=== PATIENT | male | born 1950 | race Caucasian/White ===

== ENCOUNTER → 2019-07-02 | Outpatient (CLI) | payer OTHER | END | disposition home or self-care (01) | LOC: OIH 11:19 | PROVIDERS: ATTEND Family Medicine | DX: R05 Cough (principal); M47.814 Spondylosis without myelopathy or radiculopathy, thoracic region; I70.0 Atherosclerosis of aorta | CPT/HCPCS: 71046 ==

== ENCOUNTER → 2019-12-14 | Outpatient (CLI) | payer OTHER | END | disposition home or self-care (01) | LOC: SHCH 11:06 | PROVIDERS: ATTEND Internal Medicine Cardiovascular Disease | DX: G45.9 Transient cerebral ischemic attack, unspecified (principal) | CPT/HCPCS: 93306 ==

== ENCOUNTER 2022-05-28 20:40 | Emergency (ER) | payer OTHER ==
[~2022-05-28] VITALS: Ht 177.8 cm; Wt 101.3 kg
[2022-05-28] MEDS ORDERED: ONDANSETRON 4MG INJ IVP ONE ×2 (21:00→21:30)
[2022-05-28 21:10] LABS: BASOPHILS % (AUTO) 0.1 % (0.0-5.0); EOSINOPHILS % (AUTO) 0.3 % (0.0-8.0); HEMATOCRIT 41.5 % (42-54); LYMPHOCYTES % (AUTO) 10.5 % (21.0-51.0); MEAN CORPUSCULAR HEMOGLOBIN 32.6 pg (27.0-33.0); MEAN CORPUSCULAR HGB CONC 35.4 g/dL (32.0-36.0); MONOCYTES % (AUTO) 9.2 % (3.0-13.0); NEUTROPHILS % (AUTO) 79.3 % (40.0-77.0); PLATELET COUNT (AUTO) 225 K/uL (130-400); RED BLOOD CELL COUNT(AUTO) 4.51 MIL/uL (4.50-6.20); RED CELL DISTRIBUTION WIDTH 12.2 % (11.0-15.5); WHITE BLOOD COUNT (AUTO) 10.8 K/uL (4.8-10.8)
[2022-05-28 21:12] LABS: APPEARANCE,URINE CLEAR (CLEAR); BILIRUBIN,URINE NEGATIVE (NEGATIVE); COLOR,URINE LIGHT-YELLOW (YELLOW); GLUCOSE, URINE (UA) 500 mg/dL (NEGATIVE); KETONES,URINE 10 mg/dL (NEGATIVE); LEUKOCYTE ESTERASE ,URINE NEGATIVE Leu/uL (NEGATIVE); NITRATE,URINE NEGATIVE (NEGATIVE); OCCULT BLOOD,URINE NEGATIVE (NEGATIVE); PH,URINE 6.5 (5.0-8.0); PROTEIN,URINE 10 mg/dL (NEGATIVE); UROBILINOGEN,URINE 0.2 mg/dL (0.2-1.0)
[2022-05-28 21:19] LABS: CREATININE 0.8 mg/dL (0.5-1.5)
[2022-05-28 21:26] LABS: ALBUMIN 3.7 g/dL (3.5-5.0); TOTAL PROTEIN, SERUM 7.1 g/dL (6.0-8.3)
[2022-05-28 21:29] LABS: BACTERIA,URINE FEW /HPF (None Seen); MUCUS,URINE RARE LPF (None Seen); YEAST,URINE BUDDING FEW /HPF (None Seen)
[2022-05-28] MEDS ORDERED: ZOSYN 3.375GM +NS 50ML IV ONE (21:30)
[2022-05-28] MEDS ORDERED: MORPHINE 2 MG SYG IVP ONE (21:30)
[2022-05-28] MEDS ORDERED: LACTATED RINGERS 1000ML 1,000 ML IV ONE (21:30)
[2022-05-28] MEDS ORDERED: IOHEXOL 350 MG/ML 100ML INFUS..BTL IV ONE (21:50)
[2022-05-29] MEDS ORDERED: 0.9%NACL 1000ML 1,000 ML IV ONE
[2022-05-29 01:15] VITALS: BP 148/76
[2022-05-29] MEDS ORDERED: FAMO-136 PO (01:15)
[2022-05-29] MEDS ORDERED: IBUP-1493 PO (01:15)
== END 2022-05-29 01:28 | disposition home or self-care (01) ==
LOC: EDH 20:40
DX: K85.90 Acute pancreatitis without necrosis or infection, unspecified (principal); I10 Essential (primary) hypertension; E11.9 Type 2 diabetes mellitus without complications; Z98.890 Other specified postprocedural states
CPT/HCPCS: 99284; 82150; 84484; 84478; 80053; 83690; 85025; 81001; 36415; 74177; 96365; 96366; 96375; 93005; J7120; J2405; J2543; Q9967; J7030

== ENCOUNTER → 2023-06-30 | Outpatient (CLI) | payer OTHER ==
[~2023-06-30] MED LIST: FAMO-136 PO; IBUP-1493 PO; IOHEXOL 350 MG/ML 100ML INFUS..BTL IV ONE
== END | disposition home or self-care (01) ==
LOC: RAH 08:09
PROVIDERS: ATTEND Family Medicine
DX: N28.1 Cyst of kidney, acquired (principal); R74.8 Abnormal levels of other serum enzymes; Z87.19 Personal history of other diseases of the digestive system
CPT/HCPCS: 74178; Q9967

== ENCOUNTER 2024-01-10 05:09 | Emergency (ER) | payer OTHER ==
[~2024-01-10] VITALS: Ht 177.8 cm; Wt 96.2 kg
[~2024-01-10 05:09] MED LIST changes: -IOHEXOL 350 MG/ML 100ML INFUS..BTL IV ONE
[2024-01-10] MEDS ORDERED: TENECTEplase 50 MG VIAL IVP ONE (05:10)
[2024-01-10 05:25] VITALS: TEMP 98.2
[2024-01-10 05:29] LABS: BASOPHILS # (AUTO) 0.04 K/uL (0.00-0.20); BASOPHILS % (AUTO) 0.5 % (0.0-5.0); EOSINOPHILS # (AUTO) 0.21 K/uL (0.00-0.70); EOSINOPHILS % (AUTO) 2.8 % (0.0-8.0); HEMATOCRIT 43.4 % (42-54); IMMATURE GRANULOCYTE ABSOLUTE 0.04 K/uL (0-1); LYMPHOCYTES # (AUTO) 2.3 K/uL (1.0-4.8); LYMPHOCYTES % (AUTO) 30.1 % (21.0-51.0); MEAN CORPUSCULAR HEMOGLOBIN 32.2 pg (27.0-33.0); MEAN CORPUSCULAR HGB CONC 33.6 g/dL (32.0-36.0); MEAN CORPUSCULAR VOLUME 95.8 fL (79-99); MONOCYTES # (AUTO) 0.9 K/uL (0.1-1.0); MONOCYTES % (AUTO) 11.7 % (3.0-13.0); NEUTROPHILS # (AUTO) 4.1 K/uL (1.8-7.7); NEUTROPHILS % (AUTO) 54.4 % (40.0-77.0); PLATELET COUNT (AUTO) 226 K/uL (130-400); RED BLOOD CELL COUNT(AUTO) 4.53 MIL/uL (4.50-6.20); RED CELL DISTRIBUTION WIDTH 12.6 % (11.0-15.5); WHITE BLOOD COUNT (AUTO) 7.6 K/uL (4.8-10.8)
[2024-01-10 05:38] LABS: INR 1.02 (0.85-1.15)
[2024-01-10 05:39] LABS: PARTIAL THROMBOPLASTIN TIME 26.9 SEC (26.3-35.5)
[2024-01-10 05:43] LABS: CARBON DIOXIDE 28 mmol/L (21-32); CREATINE KINASE, TOTAL 73 U/L (21-232); CREATININE 0.9 mg/dL (0.5-1.3); GLOMERULAR FILTR. RATE CALC 89 mL/min (>90); GLUCOSE,RANDOM 134 mg/dL (70-105); UREA NITROGEN, BLOOD 18 mg/dL (7-18)
[2024-01-10 05:46] LABS: ALCOHOL, BLOOD < 3 mg/dL (0-10)
[2024-01-10 05:47] LABS: B-TYPE NATRIURETIC PEPTIDE 10 pg/mL (0-100)
[2024-01-10 05:51] LABS: CHLORIDE 103 mmol/L (101-111); POTASSIUM 4.3 mmol/L (3.5-5.1); SODIUM SERUM 138 mmol/L (136-145)
[2024-01-10] MEDS: TENECTEplase 50 MG VIAL IV ONE (06:45)
[2024-01-10 06:54] VITALS: BP 164/69; PULSE 55; RESP 18; O2SAT 98
[2024-01-10 08:23] LABS: ADD UA MICROSCOPIC YES; APPEARANCE,URINE CLEAR (CLEAR); BILIRUBIN,URINE NEGATIVE (NEGATIVE); COLOR,URINE COLORLESS (YELLOW); GLUCOSE, URINE (UA) >=1000 mg/dL (NEGATIVE); KETONES,URINE NEGATIVE (NEGATIVE); LEUKOCYTE ESTERASE ,URINE NEGATIVE Leu/uL (NEGATIVE); NITRATE,URINE NEGATIVE (NEGATIVE); OCCULT BLOOD,URINE NEGATIVE (NEGATIVE); PH,URINE 5.5 (5.0-8.0); PROTEIN,URINE NEGATIVE (NEGATIVE); UROBILINOGEN,URINE 0.2 mg/dL (0.2-1.0)
[2024-01-10 08:31] LABS: RBC,URINE 0-1 /HPF (0-1)
== END 2024-01-10 09:38 | disposition short-term general hospital (02) ==
LOC: EDH 05:09
DX: I69.320 Aphasia following cerebral infarction (principal); I10 Essential (primary) hypertension; K21.9 Gastro-esophageal reflux disease without esophagitis; E66.01 Morbid (severe) obesity due to excess calories; Z79.899 Other long term (current) drug therapy; Z98.890 Other specified postprocedural states
CPT/HCPCS: 99285; 37195; 70450; 71045; 82550; 84484; 80048; 83880; 85025; 85610; 85730; 82948; 81001; 36415; 93005; J3101; 99291

== ENCOUNTER → 2024-01-23 | Outpatient (CLI) | payer OTHER ==
[2024-01-23 16:19] LABS: BASOPHILS # (AUTO) 0.03 K/uL (0.00-0.20); BASOPHILS % (AUTO) 0.3 % (0.0-5.0); EOSINOPHILS # (AUTO) 0.15 K/uL (0.00-0.70); EOSINOPHILS % (AUTO) 1.7 % (0.0-8.0); HEMATOCRIT 36.6 % (42-54); IMMATURE GRANULOCYTE ABSOLUTE 0.12 K/uL (0-1); LYMPHOCYTES # (AUTO) 1.8 K/uL (1.0-4.8); LYMPHOCYTES % (AUTO) 20.4 % (21.0-51.0); MEAN CORPUSCULAR HEMOGLOBIN 31.9 pg (27.0-33.0); MEAN CORPUSCULAR HGB CONC 32.8 g/dL (32.0-36.0); MEAN CORPUSCULAR VOLUME 97.3 fL (79-99); MONOCYTES # (AUTO) 1.1 K/uL (0.1-1.0); MONOCYTES % (AUTO) 12.5 % (3.0-13.0); NEUTROPHILS # (AUTO) 5.5 K/uL (1.8-7.7); NEUTROPHILS % (AUTO) 63.7 % (40.0-77.0); PLATELET COUNT (AUTO) 348 K/uL (130-400); RED BLOOD CELL COUNT(AUTO) 3.76 MIL/uL (4.50-6.20); RED CELL DISTRIBUTION WIDTH 13.5 % (11.0-15.5); WHITE BLOOD COUNT (AUTO) 8.7 K/uL (4.8-10.8)
[2024-01-23 16:37] LABS: POTASSIUM 4.4 mmol/L (3.5-5.1)
[2024-01-23 16:47] LABS: B-TYPE NATRIURETIC PEPTIDE 42 pg/mL (0-100)
== END | disposition home or self-care (01) ==
LOC: LAB 13:36
PROVIDERS: ATTEND Internal Medicine Cardiovascular Disease
DX: I10 Essential (primary) hypertension (principal); G45.9 Transient cerebral ischemic attack, unspecified
CPT/HCPCS: 36415; 80048; 83880; 85025

== ENCOUNTER 2024-06-01 21:30 | Emergency (ER) | payer OTHER ==
[~2024-06-01] VITALS: Ht 177.8 cm; Wt 102.1 kg
--- NOTE | 2024-06-01 22:20 | ERN ---
ED Note History of Present Illness Stated Complaint: LOWER BACK PAIN X 2 DAYS Chief Complaint: Back Injury Time Seen by MD: 21:33 Time Seen by Midlevel: 21:33 Dictation: The patient is a 73-year-old male with a history of TIA, diabetes, hypertension who presents to the emergency department with complaints of lower back pain onset yesterday night. Patient reports his has been sick at home and he has been having to carry her. Patient denies any falls or back trauma. Denies any urinary or fecal incontinence, denies any numbness to lower extremities. Allergies: Coded Allergies: No Known Drug Allergies (Unverified Allergy, Unknown, 05/28/22) Home Meds Active Scripts Lidocaine (Lidocaine) 4 % Adh..patch, 1 PATCH TP DAILY for 10 Days, #10 PATCH 0 Refills Prov:SHERRY BENAVIDES 06/01/24 Cyclobenzaprine HCl (Flexeril) 10 Mg Tab, 10 MG PO TID for muscle sstiffness, #14 TAB 0 Refills Prov:SHERRY BENAVIDES 06/01/24 Ibuprofen (Motrin/Advil) 800 Mg Tab, 800 MG PO TID, #30 TAB Prov:MYRA PATINO MD 05/29/22 Famotidine (Pepcid) 20 Mg Tablet, 20 MG PO DAILY, #30 TAB Prov:MYRA PATINO MD 05/29/22 Past Medical History Past Medical History: Diabetes-Type II, Hypertension, TIA Surgical History: Other Surgical History Other: UMBILICAL HERNIA REPAIR Social History: Negative, Other RN Note Reviewed/Agreed w/PFSH: Yes Review of System Dictation Constitutional: Negative for fever,chills, and weight loss Eyes: Negative for injury, pain,redness, and discharge ENT: Negative for injury,pain or swelling Cardiovascular: Negative for chest pain, palpitations, and edema Respiratory: Negative for shortness of breath, cough, and wheezing, Abdomen/GI: Negative for abdominal pain, nausea, vomiting, diarrhea, and constipation Back: Negative for injury positive for low back pain : Negative for injury, bleeding and discharge MS/Extremity: Negative for injury and deformity Skin: Negative for rash, and discoloration Neuro: Negative for headache, weakness, numbness, tingling, and seizure Psych: Negative for suicide ideation, homicidal ideation, and hallucinations Initial Vital Sign VS Vital Signs Date Time Temp Pulse Resp B/P (MAP) Pulse Ox O2 Delivery O2 Flow Rate FiO2 06/01/24 21:32 98.4 61 18 122/70 96 Room Air* 0 21 Physical Exam Dictation Vital Signs reviewed General Appearance: Alert, oriented x 3, no acute distress, well developed, nourished. Head and Face: non-traumatic. Eyes: PERRL, pink conjunctivas, eyelid no trauma, anterior chamber with arcus senilis. Ears: Pinnas intact and no signs of trauma or erythema ear canals clear and no discharge TM no erythema Nose: No discharge, no bleeding. Oropharynx: Mouth normal, tongue pink. pharynx clear,no erythema, tonsils no exudates, no abscesses noted, mucous membrane moist Neck: Supple, non-tender, no thyromegaly, no masses, no JVD, no bruits Breast:Deferred Chest:No tenderness, no crepitus, no paradoxical movement, no retractions Lungs:Clear, well-ventilated, symmetric, no rales, no wheezing, no rhonchi, no stridor, good breath sounds bilaterally Heart: Regular rate, regular rhythm, no murmur, no gallops Vascular: no peripheral edema, dorsalis pedis 3+ bilaterally Abdomen: Soft, positive bowel sounds, nondistended, no guarding, nontender, no rebound, no masses no hepatomegaly, no splenomegaly, no Baptiste's sign, no hernias. Rectal: Deferred Genital: Deferred Neurological: Normal speech, motor function intact, sensory function intact Musculoskeletal: Neck nontender, full range of motion, low back left tender, full range of motion, Extremities: nontender, full range of motion Skin: Color pink, dry, no turgor, no rash, no lacerations, no abrasions, no contusions. Lymphatic: Deferred Results (Laboratory/Radiology) Laboratory/Radiology REASON: lowbackpain ORDERING PHYSICIAN: SHERRY BENAVIDES NURSING CLERK PROCEDURE: L SPIN WO - CT LUMBAR SPINE W/O CONTRAST CT LUMBAR SPINE W/O CONTRAST HISTORY: Low back pain COMPARISON: None TECHNIQUE: Multiple sequential axial images of the lumbar spine were obtained including post processing sagittal and coronal reconstruction images. Patient was not given contrast through intravenous route. FINDINGS: There are degenerative changes with lumbar spine spondylosis. Vascular calcifications are seen. There is no loss of vertebral height. Evaluation for disc and cord pathology is limited with CT study. No evidence of fracture or dislocation is seen. Prostate calcifications are seen. There is left renal cyst measuring 7.3 cm. Small right complex Bosniak type II renal cyst is seen measuring 2.3 cm. IMPRESSION: 1. No fracture is seen. DJD. Labs Reviewed?: Yes ED Course ED Course Orders Procedure Category Date Status Time Orphenadrine Citrate PHA 06/01/24 Complete (Norflex) 22:00 Triamcinolone Acet PHA 06/01/24 Complete 40mg/Ml 1ml (Kenalog 22:00 Ct Lumbar Spine W/O CT 06/01/24 Resulted Contrast 21:56 Current Medications Medications (Trade) Dose Ordered Sig/Ayana Route PRN Reason Start Time Stop Time Status Last Admin Dose Admin Orphenadrine Citrate (Norflex) 60 mg ONCE ONCE IM 06/01/24 22:00 06/01/24 22:01 DC Triamcinolone Acetonide (Kenalog 40) 40 mg ONCE ONCE IM 06/01/24 22:00 06/01/24 22:01 DC Vital Signs Date Time Temp Pulse Resp B/P (MAP) Pulse Ox O2 Delivery O2 Flow Rate FiO2 06/01/24 21:33 98.4 61 18 122/70 96 Room Air 0 06/01/24 21:32 98.4 61 18 122/70 96 Room Air* 0 21 Medical Decision Making MDM The patient is a 73-year-old male with a history of TIA, diabetes, hypertension who presents to the emergency department with complaints of lower back pain onset yesterday night. Patient reports his has been sick at home and he has been having to carry her. Patient denies any falls or back trauma. Denies any urinary or fecal incontinence, denies any numbness to lower extremities. CT showed no acute fractures or dislocations. Patient's symptoms mildly related to muscle strain. Patient with no urinary or fecal incontinence, ambulatory, no numbness. Patient will be discharged to follow up PCP. Differential diagnosis: Muscle strain, lumbar fracture, lumbar dislocation Need for hospitalization: Patient does not meet criteria for hospitalization. There are no social concerns with this patient. DX & DISP Disposition: Discharge Departure Impression: Primary Impression: Low back strain Additional Impression: Low back pain Condition: Stable Scripts Lidocaine (Lidocaine) 4 % Adh..patch 1 PATCH TP DAILY for 10 Days, #10 PATCH 0 Refills Prov: SHERRY BENAVIDES MELBA 06/01/24 Cyclobenzaprine HCl (Flexeril) 10 Mg Tab 10 MG PO TID for muscle sstiffness, #14 TAB 0 Refills Prov: SHERRY BENAVIDES MELBA 06/01/24 Additional Instructions: Your CT scan did not show any fractures or dislocations. Your symptoms are related to a muscle strain. Avoid any heavy lifting that exacerbate your symptoms. Take medications as prescribed. Please follow up with your primary doctor. FOLLOW-UP WITH PRIMARY CARE PROVIDER IN 1 TO 2 DAYS. TAKE MEDICATIONS DIRECTED HERE IN THE EMERGENCY ROOM. OKAY TO CONTINUE HOME MEDICATIONS UNLESS OTHERWISE DISCUSSED DURING YOUR VISIT IN THE EMERGENCY ROOM TODAY. RETURN TO YOUR NEAREST EMERGENCY ROOM IF SYMPTOMS WORSEN OR IF THERE IS NO IMPROVEMENT. CALL 911 IF YOU NEED IMMEDIATE ASSISTANCE. TAKE TYLENOL OR MOTRIN [id number] NEEDED AND IF NO CONTRAINDICATIONS ARE PRESENT. INCREASE ORAL HYDRATION. A WOUND CULTURE OR URINE CULTURE WAS ORDERED HERE IN THE EMERGENCY ROOM DEPARTMENT PLEASE FOLLOW-UP WITH PRIMARY CARE PROVIDER AND ADVISE THEM TO GET REPEAT PORTS FROM OUR FACILITY. IF YOU HAD ANY SWETHA WRAP/SPLINTS THAT WERE APPLIED HERE, PLEASE DO NOT REMOVE THEM UNTIL YOU SEE YOUR PRIMARY CARE OR SPECIALTY. Referrals: JUAN ALBERTO URENA MD (PCP) Time of Disposition: 23:45 I have reviewed the case, and I agree with, Diagnosis and Plan SHERRY BENAVIDES MELBA Jun 01, 2024 22:20
--- NOTE | 2024-06-01 22:48 | NUR ---
PT CALLED OUT IN LOBBY, NO RESPONSE, PT NOT FOUND
--- NOTE | 2024-06-01 23:40 | HMCIMG ---
CT LUMBAR SPINE W/O CONTRAST HISTORY: Low back pain COMPARISON: None TECHNIQUE: Multiple sequential axial images of the lumbar spine were obtained including post processing sagittal and coronal reconstruction images. Patient was not given contrast through intravenous route. FINDINGS: There are degenerative changes with lumbar spine spondylosis. Vascular calcifications are seen. There is no loss of vertebral height. Evaluation for disc and cord pathology is limited with CT study. No evidence of fracture or dislocation is seen. Prostate calcifications are seen. There is left renal cyst measuring 7.3 cm. Small right complex Bosniak type II renal cyst is seen measuring 2.3 cm. IMPRESSION: 1. No fracture is seen. DJD. CT was performed with one or more following dose reduction techniques: automated exposure control, adjustment of the mA and kv according to patient's size, or use of a iterative reconstruction technique.
[2024-06-01] MEDS ORDERED: LIDO1ADH82 TP (23:46)
[2024-06-01] MEDS ORDERED: CYCL10TA16 PO (23:46)
[2024-06-01] MEDS: ORPHENADRINE 60MG/2ML IM ONE (23:58)
[2024-06-01] MEDS: TRIAMCINOLONE ACETONIDE 40 MG/ML 1ML VIAL IM ONE (23:58)
[2024-06-02 00:03] VITALS: BP 146/67; PULSE 78; RESP 20; TEMP 98.8; O2SAT 98
--- NOTE | 2024-06-02 00:50 | NUR ---
[facility] CONTACTED FOR NON EMERGENT TRANSFER HOME
== END 2024-06-02 00:12 | disposition home or self-care (01) ==
LOC: EDH 21:30
DX: S39.012A Strain of muscle, fascia and tendon of lower back, initial encounter (principal); E11.9 Type 2 diabetes mellitus without complications; I10 Essential (primary) hypertension; Z79.1 Long term (current) use of non-steroidal anti-inflammatories (NSAID); Z86.73 Personal history of transient ischemic attack (TIA), and cerebral infarction without residual deficits; Z79.899 Other long term (current) drug therapy; X58.XXXA Exposure to other specified factors, initial encounter; Y93.89 Activity, other specified; Y92.89 Other specified places as the place of occurrence of the external cause; Y99.8 Other external cause status
CPT/HCPCS: 99284; 72131; 96372 ×2; J3301; J2360

== ENCOUNTER → 2024-06-18 | Outpatient (CLI) | payer OTHER ==
[~2024-06-18] MED LIST changes: +CYCL10TA16 PO; +LIDO1ADH82 TP
[2024-06-18 12:47] LABS: BASOPHILS # (AUTO) 0.02 K/uL (0.00-0.20); BASOPHILS % (AUTO) 0.3 % (0.0-5.0); EOSINOPHILS # (AUTO) 0.03 K/uL (0.00-0.70); EOSINOPHILS % (AUTO) 0.4 % (0.0-8.0); HEMATOCRIT 40.5 % (42-54); IMMATURE GRANULOCYTE ABSOLUTE 0.07 K/uL (0-1); LYMPHOCYTES # (AUTO) 1.3 K/uL (1.0-4.8); LYMPHOCYTES % (AUTO) 17.2 % (21.0-51.0); MEAN CORPUSCULAR HEMOGLOBIN 32.9 pg (27.0-33.0); MEAN CORPUSCULAR HGB CONC 34.3 g/dL (32.0-36.0); MONOCYTES # (AUTO) 0.9 K/uL (0.1-1.0); MONOCYTES % (AUTO) 12.6 % (3.0-13.0); NEUTROPHILS % (AUTO) 68.5 % (40.0-77.0); PLATELET COUNT (AUTO) 232 K/uL (130-400); RED BLOOD CELL COUNT(AUTO) 4.22 MIL/uL (4.50-6.20); RED CELL DISTRIBUTION WIDTH 13.2 % (11.0-15.5); WHITE BLOOD COUNT (AUTO) 7.3 K/uL (4.8-10.8)
[2024-06-18 12:58] LABS: PROTHROMBIN TIME 11.2 SEC (9.6-11.6)
[2024-06-18 12:59] LABS: PARTIAL THROMBOPLASTIN TIME 29.3 SEC (26.3-35.5)
== END | disposition home or self-care (01) ==
LOC: LAB 10:27
PROVIDERS: ATTEND Internal Medicine Cardiovascular Disease
DX: T14.8XXA Other injury of unspecified body region, initial encounter (principal); X58.XXXA Exposure to other specified factors, initial encounter; Y93.89 Activity, other specified; Y92.89 Other specified places as the place of occurrence of the external cause; Y99.8 Other external cause status
CPT/HCPCS: 36415; 85025; 85610; 85730

== ENCOUNTER 2025-02-12 14:43 | Inpatient (IN) | payer OTHER ==
[~2025-02-12] VITALS: Ht 177.8 cm; Wt 91.2 kg
--- NOTE | 2025-02-12 14:52 | ERN ---
ED Note History of Present Illness Stated Complaint: WEAKNESS Chief Complaint: Weakness Time Seen by MD: 14:45 Dictation: PATIENT IS A 74-YEAR-OLD MALE COMING IN WITH HIS DAUGHTER WITH COMPLAINTS OF GENERALIZED BODY WEAKNESS,7 LB WEIGHT LOSS IN THE LAST TWO WEEKS. HE SAID HE IS JUST DOES NOT FEEL GOOD. NO CHEST PAIN NO BACK PAIN. HE IS ON DOXYCYCLINE FOR A PARONYCHIA TO THE DISTAL RIGHT INDEX FINGER. IT STARTED SEVERAL DAYS AGO ON 02/08. HE HAS A DIABETIC HE STATES HIS BLOOD SUGAR HAS BEEN CONTROLLED. HE OF FERS NO SPECIFIC COMPLAINTS OTHER THAN JUST FEELING WEAK AND HAVE SOME WEIGHT LOSS. Allergies: Coded Allergies: No Known Drug Allergies (Unverified Allergy, Unknown, 05/28/22) Home Meds Active Scripts Lidocaine (Lidocaine) 4 % Adh..patch, 1 PATCH TP DAILY for 10 Days, #10 PATCH 0 Refills Prov:SHERRY BENAVIDES [employer] 06/01/24 Cyclobenzaprine HCl (Flexeril) 10 Mg Tab, 10 MG PO TID for muscle sstiffness, #14 TAB 0 Refills Prov:SHERRY BENAVIDES 06/01/24 Ibuprofen (Motrin/Advil) 800 Mg Tab, 800 MG PO TID, #30 TAB Prov:MYRA PATINO MD 05/29/22 Famotidine (Pepcid) 20 Mg Tablet, 20 MG PO DAILY, #30 TAB Prov:MYRA PATINO MD 05/29/22 Past Medical History Past Medical History: Diabetes-Type II, Hypertension, TIA Surgical History: Other Surgical History Other: UMBILICAL HERNIA REPAIR Family History: Negative Social History: Negative, Other RN Note Reviewed/Agreed w/PFSH: Yes Review of System Dictation CONSTITUTIONAL: NEGATIVE EXCEPT FOR HPI GB W/WEIGHT LOSS HEAD/FACE: NEGATIVE EXCEPT FOR HPI EENT: NEGATIVE EXCEPT FOR HPI RESPIRATORY: NEGATIVE EXCEPT FOR HPI GASTROINTESTINAL/ABDOMINAL: NEGATIVE EXCEPT FOR HPI GENITOURINARY: NEGATIVE EXCEPT FOR HPI MUSCULOSKELETAL: NEGATIVE EXCEPT FOR HPI MILD ERYTHEMA PAIN TO DISTAL RIGHT INDEX FINGER INTEGUMENTARY: NEGATIVE EXCEPT FOR HPI NEUROLOGICAL/PSYCH: NEGATIVE EXCEPT FOR HPI HEMATOLOGIC/LYMPHATIC: NEGATIVE EXCEPT FOR HPI ALL SYSTEMS NEGATIVE, EXCEPT NOTED ABOVE. 13 POINT REVIEW OF SYSTEMS ASSESSED AND ALL NEGATIVE EXCEPT FOR ABOVE. Initial Vital Sign VS Vital Signs Date Time Temp Pulse Resp B/P (MAP) Pulse Ox O2 Delivery O2 Flow Rate FiO2 02/12/25 14:45 98.1 61 20 116/53 98 Room Air 0 02/12/25 14:58 21 Physical Exam Dictation VITAL SIGNS REVIEWED GENERAL APPEARANCE: ALERT, ORIENTED X 3, NO COMPLAINTS OF SPECIFIC PAIN. APPEARS DEBILITATED AND WEAK HEAD AND FACE: NON-TRAUMATIC. EYES: PERRL, PINK CONJUNCTIVAS, EYELID NO TRAUMA, ANTERIOR CHAMBER WITH ARCUS SENILIS. EARS: PINNAS INTACT AND NO SIGNS OF TRAUMA OR ERYTHEMA EAR CANALS CLEAR AND NO DISCHARGE TM NO ERYTHEMA NOSE: NO DISCHARGE, NO BLEEDING. OROPHARYNX: MOUTH NORMAL, TONGUE PINK, PHARYNX CLEAR,NO ERYTHEMA, TONSILS NO EXUDATES, NO ABSCESSES NOTED, MUCOUS MEMBRANE MOIST NECK: SUPPLE, NON-TENDER, NO THYROMEGALY, NO MASSES, NO JVD, NO BRUITS BREAST:DEFERRED CHEST:NO TENDERNESS, NO CREPITUS, NO PARADOXICAL MOVEMENT, NO RETRACTIONS LUNGS:CLEAR, WELL-VENTILATED, SYMMETRIC, NO RALES, NO WHEEZING, NO RHONCHI, NO STRIDOR, GOOD BREATH SOUNDS BILATERALLY HEART: REGULAR RATE, REGULAR RHYTHM, NO MURMUR, NO GALLOPS VASCULAR: NO PERIPHERAL EDEMA, ABDOMEN: SOFT, POSITIVE BOWEL SOUNDS, NONDISTENDED, NO GUARDING, NONTENDER, NO REBOUND, NO MASSES NO HEPATOMEGALY, NO SPLENOMEGALY, NO MOLINA'S SIGN, NO HERNIAS. RECTAL: DEFERRED GENITAL: DEFERRED NEUROLOGICAL: NORMAL SPEECH, MOTOR FUNCTION INTACT, SENSORY FUNCTION INTACT MUSCULOSKELETAL: NECK NONTENDER, FULL RANGE OF MOTION, BACK NONTENDER, FULL RANGE OF MOTION, EXTREMITIES: MILD TENDERNESS ERYTHEMA TO DISTAL RIGHT INDEX FINGER MEDIALLY SKIN: COLOR PINK, DRY, NO TURGOR, NO RASH, NO LACERATIONS, NO ABRASIONS, NO CONTUSIONS. LYMPHATIC: DEFERRED Results (Laboratory/Radiology) Laboratory/Radiology Laboratory Tests Test 02/12/25 15:40 02/12/25 16:15 02/12/25 18:56 02/12/25 20:27 White Blood Count 7.4 K/uL (4.8-10.8) Red Blood Count 4.70 MIL/uL (4.50-6.20) Hemoglobin 15.1 g/dL (14.0-18.0) Hematocrit 45.6 % (42-54) Mean Corpuscular Volume 97.0 fL (79-99) Mean Corpuscular Hemoglobin 32.1 pg (27.0-33.0) Mean Corpuscular Hemoglobin Concent 33.1 g/dL (32.0-36.0) Red Cell Distribution Width 13.2 % (11.0-15.5) Platelet Count 227 K/uL (130-400) Mean Platelet Volume 8.9 fL (7.5-10.5) Immature Granulocyte % (Auto) 0.5 % (0-1) Neutrophils (%) (Auto) 75.3 % (40.0-77.0) Lymphocytes (%) (Auto) 13.1 % (21.0-51.0) L Monocytes (%) (Auto) 10.3 % (3.0-13.0) Eosinophils (%) (Auto) 0.7 % (0.0-8.0) Basophils (%) (Auto) 0.1 % (0.0-5.0) Neutrophils # (Auto) 5.6 K/uL (1.8-7.7) Lymphocytes # (Auto) 1.0 K/uL (1.0-4.8) Monocytes # (Auto) 0.8 K/uL (0.1-1.0) Eosinophils # (Auto) 0.05 K/uL (0.00-0.70) Basophils # (Auto) 0.01 K/uL (0.00-0.20) Absolute Immature Granulocyte (auto 0.04 K/uL (0-1) Nucleated Red Blood Cells 0.0 % (0.0-0.19) Sodium Level 140 mmol/L (136-145) Potassium Level 4.3 mmol/L (3.5-5.1) Chloride Level 100 mmol/L (101-111) L Carbon Dioxide Level 27 mmol/L (21-32) Blood Urea Nitrogen 17 mg/dL (7-18) Creatinine 0.8 mg/dL (0.5-1.3) Glomerular Filtration Rate Calc 92 mL/min (>90) Random Glucose 104 mg/dL (70-105) Lactic Acid Level 3.6 mmol/L (0.8-2.5) H 1.8 mmol/L (0.8-2.5) 1.3 mmol/L (0.8-2.5) Total Calcium 8.8 mg/dL (8.5-10.1) Magnesium Level 1.80 mg/dL (1.80-2.40) Troponin I High Sensitivity 8 ng/L (4-75) B-Type Natriuretic Peptide 33 pg/mL (0-100) Urine Color LIGHT-YELLOW (YELLOW) Urine Appearance CLEAR (CLEAR) Urine pH 5.5 (5.0-8.0) Urine Specific [place] 1.026 (1.001-1.031) Urine Protein NEGATIVE mg/dL (NEGATIVE) Urine Glucose (UA) >=1000 mg/dL (NEGATIVE) H Urine Ketones NEGATIVE mg/dL (NEGATIVE) Urine Occult Blood NEGATIVE (NEGATIVE) Urine Nitrate NEGATIVE (NEGATIVE) Urine Bilirubin NEGATIVE mg/dL (NEGATIVE) Urine Urobilinogen 0.2 mg/dL (0.2-1.0) Urine Leukocyte Esterase NEGATIVE [place]/uL Urine RBC 0-1 /HPF (0-1) Urine WBC 0-1 /HPF (0-1) Urine Bacteria None /HPF (None Seen) Labs Reviewed?: Yes EKG Comment: 1453/EKG sinus bradycardia/heart rate 59/axis normal/no ectopy CT Scan Comment: REASON: abd distention ORDERING PHYSICIAN: THOMAS FUENTES MD PROCEDURE: ABD PEL WO - CT ABDOMEN/PELVIS W/O CONTRAST EXAM: CT Abdomen and Pelvis Without IV contrast CLINICAL HISTORY: abd distention TECHNIQUE: Axial computed tomography images of the abdomen and pelvis without intravenous contrast. CONTRAST: No IV contrast. COMPARISON: None provided. CT abdomen and pelvis with and without IV contrast 06/30/2023 FINDINGS: LUNG BASES: The lung bases appear clear. No pleural effusions are seen. LIVER: Unremarkable. GALLBLADDER AND BILE DUCTS: The gallbladder appears within normal limits. No radioopaque gallstones are seen. No biliary ductal dilatation is evident. PANCREAS: Unremarkable. SPLEEN: Unremarkable. ADRENAL GLANDS: Unremarkable. KIDNEYS, URETERS, AND BLADDER: The kidneys appear within normal limits. There is no hydronephrosis or hydroureter. No urinary calculi are seen. Stable large simple left renal cyst. Stable partially calcified small right renal cyst STOMACH AND BOWEL: Unremarkable appearance of the stomach and bowel. No evidence of bowel obstruction. No evidence suggesting enteritis or colitis. Postsurgical small bowel changes left midabdomen. Colonic diverticulosis without CT evidence of acute diverticulitis APPENDIX: No evidence of acute appendicitis on CT examination. PERITONEUM: No free fluid. No free air. LYMPH NODES: No lymphadenopathy is evident. REPRODUCTIVE: Unremarkable as visualized. VASCULATURE: No evidence of abdominal aortic aneurysm. 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 BONES: No aggressive appearing osseous lesion. No acute osseous pathology evident. IMPRESSION: 1. No acute intraabdominal or pelvic pathology. 2. Stable large simple left renal cyst and partially calcified small right renal cyst. 3. Postsurgical small bowel changes in left midabdomen. 4. Colonic diverticulosis without CT evidence of acute diverticulitis. 5. 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 /[place] DICTATED BY: MERLIN FERNANDEZ MD DATE: 02/12/251912 ELECTRONICALLY SIGNED BY: MERLIN FERNANDEZ MD DATE: 02/12/251912 ED Course ED Course Orders Procedure Category Date Status Time Blood Cult MEAGHAN 02/12/25 In Process 14:49 Lactic Acid LAB 02/12/25 Complete 14:49 B-Type Natriuretic LAB 02/12/25 Complete Peptide 14:49 Cbc With Differential LAB 02/12/25 Complete 14:49 Chest 1vw RAD 02/12/25 Resulted 14:49 12 Lead Ekg Tracing- EKG 02/12/25 Complete Technical 14:49 Magnesium LAB 02/12/25 Complete 14:49 Troponin I High LAB 02/12/25 Complete Sensitivity 14:49 Urinalysis Profile LAB 02/12/25 Complete 14:49 Basic Metabolic Panel LAB 02/12/25 Complete 14:49 Ct Abdomen/Pelvis W/O CT 02/12/25 Resulted Contrast 16:17 Pantoprazole 40mg Inj PHA 02/12/25 Complete (Protonix 40mg Inj 16:30 Lidocaine Hcl 2% PHA 02/12/25 Complete Viscous (Lidocaine Hcl 16:30 Mag/Alum/Simeth 30ml PHA 02/12/25 Complete (Maalox Plus 30ml) 16:30 0.9%Nacl 1000ml (Ns PHA 02/12/25 Complete 1000ml) 17:00 Ceftriaxone 2gm Vial PHA 02/12/25 Complete (Rocephin 2gm Inj) 17:00 Lactic Acid LAB 02/12/25 Complete 18:50 Lactic Acid (Removed) LAB 02/12/25 Complete 19:02 Admit Orders ADM 02/12/25 Transmitted 20:36 Current Medications Medications (Trade) Dose Ordered Sig/Ayana Route PRN Reason Start Time Stop Time Status Last Admin Dose Admin Al Hydroxide/Mg Hydroxide (MAALox PLUS 30ML) 30 ml ONCE ONCE PO 02/12/25 16:30 02/12/25 16:31 DC 02/12/25 17:07 Ceftriaxone Sodium (Rocephin 2gm Inj) 2 gm ONCE ONCE IVPB 02/12/25 17:00 02/12/25 17:01 DC 02/12/25 17:08 Lidocaine HCl (Lidocaine HCl 2% Viscous) 10 ml ONCE ONCE PO 02/12/25 16:30 02/12/25 16:31 DC 02/12/25 17:07 Pantoprazole Sodium (PROTonix 40MG INJ) 40 mg DAILY ONCE IVP 02/12/25 16:30 02/12/25 16:31 DC 02/12/25 17:08 Sodium Chloride 2,625 ml @ 875 mls/hr ONCE ONCE IV 02/12/25 17:00 02/12/25 19:59 DC 02/12/25 17:08 Vital Signs Date Time Temp Pulse Resp B/P (MAP) Pulse Ox O2 Delivery O2 Flow Rate FiO2 02/12/25 19:13 98.2 55 18 152/70 99 Room Air* 0 21 02/12/25 18:28 98.2 54 16 153/71 98 Room Air* 0 21 02/12/25 14:58 98.2 60 16 135/61 98 Room Air* 0 21 02/12/25 14:45 98.1 61 20 116/53 98 Room Air 0 7:00 p.m. patient was signed out to me by a.m. physician I independently reviewed all the information including lab results. Also reviewed CT scan of the abdomen results and recommended admission to the hospital. 8:40 p.m. patient accepted by Alex Kohler hospitalist mid-level provider for admission and further management. Medical Decision Making MDM 7:00 p.m.-I assumed care from a.mJabier group I independently evaluated the patient. Patient's daughter Jerica at bedside during my evaluation. He is a 74 year old male with past medical history of type 2 Diabetes mellitus, hypertension, hyperlipidemia, TIA came too the hospital for weakness, nausea, vomiting. His nausea and vomiting started in January. Its on an off. He had several episodes all day. He has hiccups before throwing up. It occurs 4 to 6 hours after eating. It contains bile and food that he ate previously. He also has loss of appetite. He has weight loss.He also had a episode of fall on Feb 04. He also has shortness of breath which is seen after walking. He has no palpitations, dizziness, chest pain, or any other symptoms. In the ER his vitals signs are Temp 98.3, pulse is 60, RR is 16, BP is 135/61, %saturation is 83. His labs show that Hb is 15.1, WBC is 7.4, sodium is 140, potassium is 4.3, chloride is 100, glucose is 104, lactic acid is 3.6 and magnesium is 1.8. Urinalysis showed glucose >1000 and no ketones. We ordered a Chest X-ray and CT abdomen. We also added IV Protonix, GI cocktail. Chest X-ray showed no abnormality. Based on the blood work and urinalysis we diagnosed his condition as lactic acidosis. We started him on normal saline and we will admit him for further management. Differential diagnosis: Dehydration, lactic acidosis, Sepsis, Diabetic ketoacidosis, gastroparesis, situational depression as he just lost his in June, long-term effects of heavy alcohol abuse-vitamin B12 or folate deficiency. Mesenteric ischemia is another possibility I strongly suspect combination of likely diabetic gastroparesis, component of situational depression after losing spouse and long-term effects of heavy alcohol abuse although he stated that he has quit drinking 4 years ago. I updated the patient and his daughter on my thought process and concern for lactic acidosis and I reviewed the CT scan results with both of them. There is a suggestion of anatherosclerotic changes in the SMA. Patient does not have any abdominal pain postprandial to suggest mesenteric ischemia. I recommended admission to the hospital and further evaluation for the nausea vomitings, obtain B12 folate and thiamine supplementation. Patient may also need psychiatry evaluation for situational depression They both are agreeable Rationale: Tests considered and ordered secondary to shared decision making include: CBC, BMP, Lactic acid, CT abdomen and pelvis, magnesium, chest X-ray, urinalysis, CT abdomen and pelvis. Previous outside records reviewed: Old ER visits. Risk of complication and/or morbidity or mortality of patient management: None Medications-Per medication reconciliation Need for hospitalization: Patient does meet criteria for hospitalization. Need for emergency major/minor surgery: No There are no social concerns with this patient. Prescription drug management Prescriptions will include symptomatic care Patient's prior external medical records from other ER visits were reviewed by me as indicated. Prior testing and results from previous visits were reviewed. Prior tests were taken into account with medical decision making and resource utilization, independent historian/historians were used to obtain complete medical history. I independently interpreted the test that were performed, results were reviewed by me and considered findings on radiology if ordered. Medical management and examination interpretation discussions were had by me with other qualified healthcare professionals as indicated for the patient's care. Problem List Problem List: (1) Gastroparesis diabeticorum (2) Weight loss, unintentional (3) History of alcohol abuse (4) Reactive depression (situational) (5) Intractable nausea and vomiting (6) Lactic acidosis (7) Weakness DX & DISP Disposition: Inpatient Decision to Admit Time: 20:41 Departure Impression: Primary Impression: Lactic acidosis Additional Impressions: Weakness, Intractable nausea and vomiting, Gastroparesis diabeticorum, Weight loss, unintentional, Reactive depression (situational), History of alcohol abuse Condition: Stable Additional Instructions: Patient was informed of all the diagnostic labs and procedures conducted in the emergency room today and demonstrated understanding of the results. I personally reviewed and interpreted all the diagnostic exams performed in the ER today. The patient will be admitted to the hospital for further treatment and evaluation. Disposition-admit to facility Condition-stable/guarded Course-uncertain at this time Pain status-decreased Assessment-exam unchanged Admission Certification- I certify that the patients status is appropriate and is based on my best clinical judgment and the patient's condition as documented in the medical records Referrals: JUAN ALBERTO URENA MD (PCP) WAQAR ACEVEDO Feb 12, 2025 14:52 JACKIE LANIER MD Feb 12, 2025 16:23 THOMAS FUENTES MD Feb 12, 2025 18:56 YONAS RODRIGUEZ MD Feb 12, 2025 19:30
[2025-02-12 15:48] LABS: IMMATURE GRANULOCYTE ABSOLUTE 0.04 K/uL (0-1); NUCLEATED RED BLOOD CELLS 0.0 % (0.0-0.19); PLATELET COUNT (AUTO) 227 K/uL (130-400); RED BLOOD CELL COUNT(AUTO) 4.70 MIL/uL (4.50-6.20); RED CELL DISTRIBUTION WIDTH 13.2 % (11.0-15.5); WHITE BLOOD COUNT (AUTO) 7.4 K/uL (4.8-10.8)
[2025-02-12 16:06] LABS: CREATININE 0.8 mg/dL (0.5-1.3); GLOMERULAR FILTR. RATE CALC 92.0 mL/min (>90); GLUCOSE,RANDOM 104.0 mg/dL (70-105); SODIUM SERUM 140.0 mmol/L (136-145); UREA NITROGEN, BLOOD 17.0 mg/dL (7-18)
--- NOTE | 2025-02-12 16:10 | HMCIMG ---
EXAM: CR Chest, 1 View. CLINICAL HISTORY: CHEST PAIN/SOB COMPARISON: X-ray chest 01/09/2024 FINDINGS: LUNGS: There is no mass, infiltrate, or acute pulmonary abnormality. PLEURAL SPACES: No evidence of pleural effusion or pneumothorax. MEDIASTINUM: Cardiac size and mediastinal contours within normal limits. BONES: No acute osseous abnormality. IMPRESSION: No acute cardiopulmonary pathology is evident. No significant change /[place]
[2025-02-12 16:27] LABS: APPEARANCE,URINE CLEAR (CLEAR); GLUCOSE, URINE (UA) >=1000 mg/dL (NEGATIVE); LEUKOCYTE ESTERASE ,URINE NEGATIVE Leu/uL (NEGATIVE); NITRATE,URINE NEGATIVE (NEGATIVE); OCCULT BLOOD,URINE NEGATIVE (NEGATIVE)
[2025-02-12 16:28] LABS: ADD UA MICROSCOPIC YES
[2025-02-12] MEDS: MAG/ALUM/SIMETH 30 ML UDCUP PO ONE (17:07)
[2025-02-12] MEDS: LIDOCAINE HCL 2% VISCOUS 15 ML UDCUP PO ONE (17:07)
[2025-02-12] MEDS: [UNRECOGNIZED DRUG - OTHER] IV ONE (17:08)
--- NOTE | 2025-02-12 17:16 | EKG ---
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
--- NOTE | 2025-02-12 18:14 | HMCIMG ---
EXAM: CT Abdomen and Pelvis Without IV contrast CLINICAL HISTORY: abd distention TECHNIQUE: Axial computed tomography images of the abdomen and pelvis without intravenous contrast. CONTRAST: No IV contrast. COMPARISON: None provided. CT abdomen and pelvis with and without IV contrast 06/30/2023 FINDINGS: LUNG BASES: The lung bases appear clear. No pleural effusions are seen. LIVER: Unremarkable. GALLBLADDER AND BILE DUCTS: The gallbladder appears within normal limits. No radioopaque gallstones are seen. No biliary ductal dilatation is evident. PANCREAS: Unremarkable. SPLEEN: Unremarkable. ADRENAL GLANDS: Unremarkable. KIDNEYS, URETERS, AND BLADDER: The kidneys appear within normal limits. There is no hydronephrosis or hydroureter. No urinary calculi are seen. Stable large simple left renal cyst. Stable partially calcified small right renal cyst STOMACH AND BOWEL: Unremarkable appearance of the stomach and bowel. No evidence of bowel obstruction. No evidence suggesting enteritis or colitis. Postsurgical small bowel changes left midabdomen. Colonic diverticulosis without CT evidence of acute diverticulitis APPENDIX: No evidence of acute appendicitis on CT examination. PERITONEUM: No free fluid. No free air. LYMPH NODES: No lymphadenopathy is evident. REPRODUCTIVE: Unremarkable as visualized. VASCULATURE: No evidence of abdominal aortic aneurysm. 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 BONES: No aggressive appearing osseous lesion. No acute osseous pathology evident. IMPRESSION: 1. No acute intraabdominal or pelvic pathology. 2. Stable large simple left renal cyst and partially calcified small right renal cyst. 3. Postsurgical small bowel changes in left midabdomen. 4. Colonic diverticulosis without CT evidence of acute diverticulitis. 5. 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 /[place]
--- NOTE | 2025-02-12 19:11 | NUR ---
transfered care to [facility]
--- NOTE | 2025-02-12 20:38 | HP ---
History of Present Illness Reason for Visit: n/v History of Present Illness Mr. Wall is a 74-year-old male that was seen and examined today on 02/12/2025. Patient is a good historian of personal health Patient states that he came to the emergency department with a chief complaint of nausea and vomiting. Onset is one month ago. Location is abdominal. Duration is on and off and multiple times a day. Character is described as, "after eating I will suddenly get the hiccups then it feels like I get this wave of nausea. "There was no alleviating factors. Symptoms are aggravated with eating or drinking. Patient denies any associated chest pain or shortness and breath. Patient also reports that he gets easily irritated he has always had a short temper but never like this. Patient is also relates that he has felt easily irritated since his in June of 2024. Today in the emergency department labs are unremarkable. Chest x-ray unrema rkable, chest x-ray unremarkable, urinalysis unremarkable. Emergency room physician recommended patient be admitted with a diagnosis of nausea vomiting, weakness, decreased appetite and suspected depression. Past Medical History ADDITIONAL PAST MEDICAL HISTORY: [Diabetes mellitius type2, hypertension, TIA] SOCIAL HISTORY: [Negative for smoking. Patient quit drinking alcohol four years ago. Patient denies drug use. Patient is a . Patient's in June of 2024. Patient lives alone. Patient has good access to health care through his insurance. Patient denies difficulty pain is bills. Patient is typically independent of all his ADLs.] SURGICAL HISTORY: [Hernia repair x3, tonsillectomy] Review of Systems General: No Fever, No Chills, No Night Sweats, No Fatigue, No Malaise, No Appetite, No Other HEENT: No Head Aches, No Visual Changes, No Eye Pain, No Ear Pain, No Dysphasia, No Sinus Congestion, No Post Nasal Drip, No Sore Throat, No Other Pulmonary: No Dyspnea, No Cough, No Pleuritic Chest Pain, No Other Cardiovascular: No: Chest Pain, Palpitations, Orthopnea, Paroxysmal Noc. Dyspnea, Edema, Lt Headedness, Other Gastrointestinal: Nausea, Vomiting; No: Abdominal Pain, Diarrhea, Constipation, Melena, Hematochezia, Other Genitourinary: No Dysuria, No Frequency, No Incontinence, No Hematuria, No Retention, No Other Musculoskeletal: No: other, neck pain, shoulder pain, arm pain, back pain, hand pain, leg pain, foot pain Skin: No Urticaria, No Rash, No Other Neurological: No: Weakness, Numbness, Incoordination, Change in speech, Confusion, Seizures, Other Allergies: Coded Allergies: No Known Drug Allergies (Unverified Allergy, Unknown, 05/28/22) Scheduled Amiodarone HCl (Amiodarone HCl), 1 TAB PO BID, (Reported) Apixaban (Eliquis), 1 TAB PO BID, (Reported) Aspirin (Aspirin EC), 1 TAB PO QODAY, (Reported) Atorvastatin Calcium (Atorvastatin Calcium), 1 TAB PO DAILY, (Reported) Bupropion HCl (Bupropion HCl), 1 TAB PO DAILY, (Reported) Doxycycline Monohydrate (Doxycycline Monohydrate), 1 TAB PO BID, (Reported) Empagliflozin (Jardiance), 1 TAB PO DAILY, (Reported) Furosemide (Furosemide), 1 TAB PO DAILY, (Reported) Levetiracetam (Levetiracetam), 1 TAB PO BID, (Reported) Lisinopril (Lisinopril), 1 TAB PO DAILY, (Reported) Metformin HCl (Metformin HCl), 1 TAB PO BIDMEALS, (Reported) Discontinued Medications Cyclobenzaprine HCl (Flexeril), 10 MG PO TID Famotidine (Pepcid), 20 MG PO DAILY Ibuprofen (Motrin/Advil), 800 MG PO TID Lidocaine (Lidocaine), 1 PATCH TP DAILY Exam Vital Signs Vital Signs Date Time Temp Pulse Resp B/P (MAP) Pulse Ox O2 Delivery O2 Flow Rate FiO2 02/12/25 19:13 98.2 55 18 152/70 99 Room Air* 0 21 General Appearance: Alert, Oriented X3, Cooperative, No acute distress HEENT: Atraumatic, PERRLA, EOMI Respiratory: Clear to auscultation, Normal air movement, NL respiratory effort Cardiovascular: Regular rate, Regular rhythm, Normal S1, Normal S2 Abdominal: Normal bowel sounds, Soft, No tenderness Extremities: No edema Skin: No breakdown, No significant lesion Neuro: Normal gait, Normal speech, Strength at 5/5 X4 ext, Cranial nerves 3-12 NL Psych/Mental Status: Mental status NL, Mood NL, Thoughts/Content NL Assessment/Plan ASSESSMENT: [ Nausea and vomiting, POA Weakness and deconditioning, POA Decreased appetite, POA Suspected depression, POA Diabetes mellitius type2 Hypertension] PLAN: [ Admit patient to medical floor as inpatient status. Keep patient NPO. IV fluid maintenance therapy lactated Ringer's at 75 mL/HR. As-needed antiemetic, Zofran. Physical therapy for evaluation and treatment. Dietitian consult for nutritional support recommendations. Tele psychiatry consult for evaluation and further recommendations. Glucometer checks a.c. and HS Humulin R sliding scale Check hemoglobin A1c in a.m. Advance diet to 1800 ADA once patient is no longer nauseated Consider resuming home medications once they have been reconciled At time of admission home medications not been reconciled For now: Hydralazine 10 mg IV every 4 hours for systolic blood pressure greater than 160 mmHg GI prophylaxis, famotidine DVT prophylaxis, Lovenox ADVANCED CARE PLANNING 1. Which of the following were discussed? Hospice Care - Yes Therapeutic options - yes Advance Directives - Yes - patient states he does not have any advance directives in place at this time, however his daughter Radha Spangler can make decisions for him if he becomes unable. Other discussions - patient wishes to remain a full code at this time 2. Discussed with who? Patient 3. Voluntary nature of this service was explained to the patient? Yes 4. Amount of time spent - ___16 minutes____ 5. Reviewed by Physician? (if this service was performed by NPP) Yes This document was generated in part using voice recognition software, occasional wrong word or sound alike substitutions may have occurred due to the inherent limitations of voice recognition software. Read the chart carefully and recognize using context, where the substitutions have occurred. Although every effort was made to edit the content, black off worker and typing errors may occur ATTESTATION BY PHYSICIAN I have seen and examined the patient. I reviewed the documentation, medical dec ision making, and treatment plan as noted by the mid-level provider above. I agree with the findings and plan of care. ] [facility] Feb 12, 2025 20:38
[2025-02-12] MEDS: LACTATED RINGERS 1000ML 1,000 ML IV SCH (21:00)
[2025-02-12] MEDS ORDERED: LACTULOSE 20 GM/30 ML UDCUP PO PRN (21:00)
[2025-02-12 21:09] LABS: IMMATURE GRANULOCYTE ABSOLUTE 0.05 K/uL (0-1); NUCLEATED RED BLOOD CELLS 0.0 % (0.0-0.19); PLATELET COUNT (AUTO) 203 K/uL (130-400); RED BLOOD CELL COUNT(AUTO) 4.30 MIL/uL (4.50-6.20); RED CELL DISTRIBUTION WIDTH 13.2 % (11.0-15.5); WHITE BLOOD COUNT (AUTO) 6.4 K/uL (4.8-10.8)
[2025-02-12 21:19] LABS: CREATININE 0.8 mg/dL (0.5-1.3); GLOMERULAR FILTR. RATE CALC 92.0 mL/min (>90); GLUCOSE,RANDOM 88.0 mg/dL (70-105); PHOSPHORUS 3.7 mg/dL (2.5-4.9); SODIUM SERUM 143.0 mmol/L (136-145); UREA NITROGEN, BLOOD 14.0 mg/dL (7-18)
--- NOTE | 2025-02-12 22:15 | NUR ---
PATIENT CARE TRANSFERED TO JONAS PALMER
[2025-02-12 22:20] VITALS: BP 172/68; PULSE 56; RESP 20; TEMP 98
--- NOTE | 2025-02-12 22:35 | NUR ---
DAUGHTER INFORMED OF PATIENT TRANSFER TO [id number]
[2025-02-12] MEDS ORDERED: ASPI-1443 PO (22:37)
[2025-02-12] MEDS ORDERED: METF-446 PO (22:39)
[2025-02-12] MEDS ORDERED: APIX5TAB PO (22:41)
[2025-02-12] MEDS ORDERED: LISI20TA24 PO (22:41)
[2025-02-12] MEDS ORDERED: AMIO200T73 PO (22:41)
[2025-02-12] MEDS ORDERED: BUPR100T13 PO (22:43)
[2025-02-12] MEDS ORDERED: LEVE500T19 PO (22:43)
[2025-02-12] MEDS ORDERED: EMPA10TA PO (22:46)
[2025-02-12] MEDS ORDERED: DOXY100T21 PO (22:46)
[2025-02-12] MEDS ORDERED: FURO20TA4 PO (22:46)
[2025-02-12] MEDS ORDERED: ATOR40TA71 PO (22:46)
[2025-02-12 23:22] VITALS: O2SAT 92
--- NOTE | 2025-02-12 23:41 | NUR ---
HOME MEDICATIONS (11 BOTLES) SENT TO PHARMACY IN [facility].
[2025-02-13] VITALS (20 sets, daily range): BP systolic 141–184; BP diastolic 57–79; PULSE 53–61; RESP 15–20; TEMP 97.4–98
--- NOTE | 2025-02-13 08:00 | NUR ---
PATIENT WITH CONCERNS OVER HOME MEDICATIONS , MD HERE AND REVIEWED PATIENTS HOME MEDICATIONS AND WILL REORDER HOME MEDS.
[2025-02-13] MEDS: FAMOTIDINE 20MG TAB PO SCH (10:16)
[2025-02-13] MEDS: ASPIRIN 81 MG EC TAB PO SCH (10:16)
[2025-02-13] MEDS: ENOXAPARIN SODIUM 40 MG/0.4 ML SYRINGE SQ SCH (10:18)
--- NOTE | 2025-02-13 10:30 | NUR ---
PER NURSE MARCO, PATIENT UPSET. Addendum: 02/13/25 at 1149 by MONICA PADILLA PT Amended: Links added.
--- NOTE | 2025-02-13 10:48 | CONS ---
CONSULT NOTE: Reason for consult: decreased appetite, loss of spouse 6 months ao Reason for medical admission: chief complaint of nausea and vomiting. Onset is one month ago. Location is abdominal. Duration is on and off and multiple times a day. Character is described as, "after eating I will suddenly get the hiccups then it feels like I get this wave of nausea. "There was no alleviating factors. Symptoms are aggravated with eating or drinking. Patient denies any associated chest pain or shortness and breath. Patient also reports that he gets easily irritated he has always had a short temper but never like this. Patient is also relates that he has felt easily irritated since his in June of 2024. Today in the emergency department labs are unremarkable. Chest x-ray unremarkable, chest x-ray unremarkable, urinalysis unremarkable. Emergency room physician recommended patient be admitted with a diagnosis of nausea vomiting, weakness, decreased appetite and suspected depression. CC: none HPI: Called to completed consult and was informed that patient is not available and in surgery today. Chart was reviewed. Patient with recent loss of as well as weakness, weight lostt poor appetite and GI symptoms. Patient was taking Wellbutrin 100 mg daily prior to admission. This is a very low dose and this could have been suppressing his appetite. Patient also reported increased anger and irritability since his in June 2024. No SI reported. Home psychiatric medications: Wellbutrin 100 mg daily Vital Signs Date Time Temp Pulse Resp B/P (MAP) Pulse Ox O2 Delivery O2 Flow Rate FiO2 02/13/25 07:51 97.9 56 18 150/71 95 Room Air 21 02/12/25 23:22 0 Current Medications Medications Dose Ordered Sig/Ayana Start Time Stop Time Status Last Admin Acetaminophen 650 mg Q6H PRN 02/12/25 21:00 03/14/25 20:59 Enoxaparin Sodium 40 mg DAILY 02/13/25 09:00 03/15/25 08:59 02/13/25 10:18 Famotidine 20 mg DAILY 02/13/25 09:00 03/15/25 08:59 02/13/25 10:16 Aspirin 81 mg DAILY 02/13/25 09:00 03/15/25 08:59 02/13/25 10:16 Hydralazine HCl 10 mg Q6H PRN 02/12/25 21:00 03/14/25 20:59 Lactated Ringer's 1,000 ml @ 75 mls/hr [id number] 02/12/25 21:00 03/14/25 20:59 02/13/25 10:18 Lactulose 20 gm BID PRN 02/12/25 21:00 03/14/25 20:59 Morphine Sulfate 2 mg Q4H PRN 02/12/25 21:00 02/19/25 20:59 Ondansetron HCl 4 mg Q6H PRN 02/12/25 21:00 03/14/25 20:59 Insulin Human Regular INSULIN SLIDING SCAL... ACHS 02/12/25 21:00 03/14/25 20:59 Alprazolam 0.5 mg Q8H PRN 02/12/25 23:30 03/14/25 23:29 Laboratory Tests Test 02/12/25 15:40 02/12/25 16:15 02/12/25 18:56 02/12/25 20:27 White Blood Count 7.4 K/uL (4.8-10.8) Red Blood Count 4.70 MIL/uL (4.50-6.20) Hemoglobin 15.1 g/dL (14.0-18.0) Hematocrit 45.6 % (42-54) Mean Corpuscular Volume 97.0 fL (79-99) Mean Corpuscular Hemoglobin 32.1 pg (27.0-33.0) Mean Corpuscular Hemoglobin Concent 33.1 g/dL (32.0-36.0) Red Cell Distribution Width 13.2 % (11.0-15.5) Platelet Count 227 K/uL (130-400) Mean Platelet Volume 8.9 fL (7.5-10.5) Immature Granulocyte % (Auto) 0.5 % (0-1) Neutrophils (%) (Auto) 75.3 % (40.0-77.0) Lymphocytes (%) (Auto) 13.1 % (21.0-51.0) L Monocytes (%) (Auto) 10.3 % (3.0-13.0) Eosinophils (%) (Auto) 0.7 % (0.0-8.0) Basophils (%) (Auto) 0.1 % (0.0-5.0) Neutrophils # (Auto) 5.6 K/uL (1.8-7.7) Lymphocytes # (Auto) 1.0 K/uL (1.0-4.8) Monocytes # (Auto) 0.8 K/uL (0.1-1.0) Eosinophils # (Auto) 0.05 K/uL (0.00-0.70) Basophils # (Auto) 0.01 K/uL (0.00-0.20) Absolute Immature Granulocyte (auto 0.04 K/uL (0-1) Nucleated Red Blood Cells 0.0 % (0.0-0.19) Sodium Level 140 mmol/L (136-145) Potassium Level 4.3 mmol/L (3.5-5.1) Chloride Level 100 mmol/L (101-111) L Carbon Dioxide Level 27 mmol/L (21-32) Blood Urea Nitrogen 17 mg/dL (7-18) Creatinine 0.8 mg/dL (0.5-1.3) Glomerular Filtration Rate Calc 92 mL/min (>90) Random Glucose 104 mg/dL (70-105) Lactic Acid Level 3.6 mmol/L (0.8-2.5) H 1.8 mmol/L (0.8-2.5) 1.3 mmol/L (0.8-2.5) Total Calcium 8.8 mg/dL (8.5-10.1) Magnesium Level 1.80 mg/dL (1.80-2.40) Troponin I High Sensitivity 8 ng/L (4-75) B-Type Natriuretic Peptide 33 pg/mL (0-100) Urine Color LIGHT-YELLOW (YELLOW) Urine Appearance CLEAR (CLEAR) Urine pH 5.5 (5.0-8.0) Urine Specific [place] 1.026 (1.001-1.031) Urine Protein NEGATIVE mg/dL (NEGATIVE) Urine Glucose (UA) >=1000 mg/dL (NEGATIVE) H Urine Ketones NEGATIVE mg/dL (NEGATIVE) Urine Occult Blood NEGATIVE (NEGATIVE) Urine Nitrate NEGATIVE (NEGATIVE) Urine Bilirubin NEGATIVE mg/dL (NEGATIVE) Urine Urobilinogen 0.2 mg/dL (0.2-1.0) Urine Leukocyte Esterase NEGATIVE [place]/uL Urine RBC 0-1 /HPF (0-1) Urine WBC 0-1 /HPF (0-1) Urine Bacteria None /HPF (None Seen) Test 02/12/25 20:56 02/13/25 03:45 02/13/25 05:35 White Blood Count 6.4 K/uL (4.8-10.8) Red Blood Count 4.30 MIL/uL (4.50-6.20) L Hemoglobin 13.9 g/dL (14.0-18.0) L Hematocrit 41.1 % (42-54) L Mean Corpuscular Volume 95.6 fL (79-99) Mean Corpuscular Hemoglobin 32.3 pg (27.0-33.0) Mean Corpuscular Hemoglobin Concent 33.8 g/dL (32.0-36.0) Red Cell Distribution Width 13.2 % (11.0-15.5) Platelet Count 203 K/uL (130-400) Mean Platelet Volume 8.9 fL (7.5-10.5) Immature Granulocyte % (Auto) 0.8 % (0-1) Neutrophils (%) (Auto) 60.8 % (40.0-77.0) Lymphocytes (%) (Auto) 24.3 % (21.0-51.0) Monocytes (%) (Auto) 12.0 % (3.0-13.0) Eosinophils (%) (Auto) 1.6 % (0.0-8.0) Basophils (%) (Auto) 0.5 % (0.0-5.0) Neutrophils # (Auto) 3.9 K/uL (1.8-7.7) Lymphocytes # (Auto) 1.5 K/uL (1.0-4.8) Monocytes # (Auto) 0.8 K/uL (0.1-1.0) Eosinophils # (Auto) 0.10 K/uL (0.00-0.70) Basophils # (Auto) 0.03 K/uL (0.00-0.20) Absolute Immature Granulocyte (auto 0.05 K/uL (0-1) Nucleated Red Blood Cells 0.0 % (0.0-0.19) Sodium Level 143 mmol/L (136-145) Potassium Level 3.9 mmol/L (3.5-5.1) Chloride Level 106 mmol/L (101-111) Carbon Dioxide Level 28 mmol/L (21-32) Blood Urea Nitrogen 14 mg/dL (7-18) Creatinine 0.8 mg/dL (0.5-1.3) Glomerular Filtration Rate Calc 92 mL/min (>90) Random Glucose 88 mg/dL (70-105) Total Calcium 8.3 mg/dL (8.5-10.1) L Phosphorus Level 3.7 mg/dL (2.5-4.9) Magnesium Level 1.70 mg/dL (1.80-2.40) L Hemoglobin A1c 6.1 % (4.0-6.0) H Estimated Average Glucose (eAG) 128 mg/dL (70-126) H Whole Blood Glucose 75 MG/DL (70-110) MSE: none - patient not available for [id number] consult Assessment: unspecified depressive disorder Recommendations: -If you have any safety concerns about Mr. Wall, or if the patient is reporting any issues with SI or inability to function/care for self then please re-consult and we can evaluate for inpatient psychiatric admission. -Stop Wellbutrin due to lack of efficacy and potential appetite suppression -Recommend Remeron 15 mg PO QHS for help with sleep, appetite and depression -Please make referrals to outpatient psychiatry, therapy and grief groups after DC -Please re-consult if [id number] consult or any additional recommendations are needed. *30 mins was spent on chart review and documentation KRIS SOLIZ DO Feb 13, 2025 10:48
--- NOTE | 2025-02-13 11:04 | NUR ---
DCP:HOME Pt currently lives alone in his home. Pt does not have any DME, home health, or provider services. Pt states that he is able to complete ADLs independently. PCP is Dr. Eva Valles and uses [facility] for any RX needs. At ME pt will want to go home and family can assist with transportation. Addendum: 02/13/25 at 1107 by MERLIN COPELAND SS Amended: Links added.
--- NOTE | 2025-02-13 11:26 | CONS ---
GASTROENTEROLOGY CONSULTATION NOTE Date of Consultation: Feb 13, 2025 Time of Consultation: 11:25 History of Present Illness: [Patient with complaints of nausea and vomiting x 1 month with 7lbs weight loss. Patient reports onset of hiccups after eating and then has vomiting. We were consulted for possible gastroparesis and for endoscopy. CT abdomen and pelvis showin. No acute intraabdominal or pelvic pathology. 2. Stable large simple left renal cyst and partially calcified small right renal cyst. 3. Postsurgical small bowel changes in left midabdomen. 4. Colonic diverticulosis without CT evidence of acute diverticulitis. 5. 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 ] Review of Systems: CONSTITUTIONAL: No malaise or change in sensation of wellbeing. ENMT: No rhinorrhea, otorrhea, sinus pain, ear ache. CARDIOVASCULAR: No angina, palpitations, orthopnea or paroxysmal dyspnea. RESPIRATORY: No SOB. GASTROINTESTINAL: No abdominal pain, nausea, vomiting, diarrhea, hematemesis, melena or change in the patient's habitual bowel movements consistency/number. GENITOURINARY: No dysuria, hematuria or change in bladder continence. MUSCULOSKELETAL: No new muscle pain or decrease in muscular strength. No new joint swelling, redness or tenderness. SKIN: No new rash. Past Medical History: [Diabetes mellitius type2, hypertension, TIA] SOCIAL HISTORY: [Negative for smoking. Patient quit drinking alcohol four years ago. Patient denies drug use. Patient is a . Patient's in June of 2024. Patient lives alone. Patient has good access to health care through his insurance. Patient denies difficulty pain is bills. Patient is typically independent of all his ADLs.] SURGICAL HISTORY: [Hernia repair x3, tonsillectomy Coded Allergies: No Known Drug Allergies (Unverified Allergy, Unknown, 05/28/22) Physical Exam: GEN: Awake, alert, oriented in person, time and place, and in no acute distress. HEENT: No sinus tenderness. Tympanic membranes were not examined. No rhinorrhea. Oral pharyngeal mucosa is pink, moist and within normal limits. Neck is supple with no cervical lymphadenopathy, thyromegaly or JVD. CHEST: Inspection, palpation and percussion of the chest were unremarkable. Lung auscultation revealed normal breath sounds bilaterally. CARDIAC: PMI is within normal limits. Heart sounds are regular. Normal S1, S2. No gallop or murmur. ABD: Soft, non-tender and not distended. No peritoneal signs on palpation. No organomegaly. Normal bowel sounds. EXT: No cyanosis or clubbing. No edema. SKIN: Intact. No rashes. JOINTS: No evidence of synovitis or acute arthritis. NEURO: Alert and oriented to name, place and person. Cranial nerve examination is unremarkable. No focal motor deficits. Normal speech. Gait is normal. Strength is normal. Vital Sign (Last 24 Hours) 02/12/25 02/13/25 23:22 07:51 Temp 97.9 Pulse 56 Resp 18 B/P (MAP) 150/71 Pulse Ox 95 O2 Delivery Room Air O2 Flow Rate 0 FiO2 21 Laboratory: [ ] Laboratory: Test 02/13/25 10:56 02/13/25 03:45 02/12/25 20:56 02/12/25 20:27 Range/Units Whole Blood Glucose 72 70-110 MG/DL Hemoglobin A1c 6.1 H 4.0-6.0 % Estimated Average Glucose (eAG) 128 H 70-126 mg/dL White Blood Count 6.4 4.8-10.8 K/uL Red Blood Count 4.30 L 4.50-6.20 MIL/uL Hemoglobin 13.9 L 14.0-18.0 g/dL Hematocrit 41.1 L 42-54 % Mean Corpuscular Volume 95.6 79-99 fL Mean Corpuscular Hemoglobin 32.3 27.0-33.0 pg Mean Corpuscular Hemoglobin Concent 33.8 32.0-36.0 g/dL Red Cell Distribution Width 13.2 11.0-15.5 % Platelet Count 203 130-400 K/uL Mean Platelet Volume 8.9 7.5-10.5 fL Immature Granulocyte % (Auto) 0.8 0-1 % Neutrophils (%) (Auto) 60.8 40.0-77.0 % Lymphocytes (%) (Auto) 24.3 21.0-51.0 % Monocytes (%) (Auto) 12.0 3.0-13.0 % Eosinophils (%) (Auto) 1.6 0.0-8.0 % Basophils (%) (Auto) 0.5 0.0-5.0 % Neutrophils # (Auto) 3.9 1.8-7.7 K/uL Lymphocytes # (Auto) 1.5 1.0-4.8 K/uL Monocytes # (Auto) 0.8 0.1-1.0 K/uL Eosinophils # (Auto) 0.10 0.00-0.70 K/uL Basophils # (Auto) 0.03 0.00-0.20 K/uL Absolute Immature Granulocyte (auto 0.05 0-1 K/uL Nucleated Red Blood Cells 0.0 0.0-0.19 % Sodium Level 143 136-145 mmol/L Potassium Level 3.9 3.5-5.1 mmol/L Chloride Level 106 101-111 mmol/L Carbon Dioxide Level 28 21-32 mmol/L Blood Urea Nitrogen 14 7-18 mg/dL Creatinine 0.8 0.5-1.3 mg/dL Glomerular Filtration Rate Calc 92 >90 mL/min Random Glucose 88 70-105 mg/dL Total Calcium 8.3 L 8.5-10.1 mg/dL Phosphorus Level 3.7 2.5-4.9 mg/dL Magnesium Level 1.70 L 1.80-2.40 mg/dL Lactic Acid Level 1.3 0.8-2.5 mmol/L Test 02/12/25 16:15 02/12/25 15:40 Range/Units Urine Color LIGHT-YELLOW YELLOW Urine Appearance CLEAR CLEAR Urine pH 5.5 5.0-8.0 Urine Specific [place] 1.026 1.001-1.031 Urine Protein NEGATIVE NEGATIVE mg/dL Urine Glucose (UA) >=1000 H NEGATIVE mg/dL Urine Ketones NEGATIVE NEGATIVE mg/dL Urine Occult Blood NEGATIVE NEGATIVE Urine Nitrate NEGATIVE NEGATIVE Urine Bilirubin NEGATIVE NEGATIVE mg/dL Urine Urobilinogen 0.2 0.2-1.0 mg/dL Urine Leukocyte Esterase NEGATIVE NEGATIVE [place]/uL Urine RBC 0-1 0-1 /HPF Urine WBC 0-1 0-1 /HPF Urine Bacteria None None Seen /HPF Troponin I High Sensitivity 8 4-75 ng/L B-Type Natriuretic Peptide 33 0-100 pg/mL Current Medications Medications (Trade) Dose Ordered Sig/Ayana Route PRN Reason Start Time Stop Time Status Last Admin Dose Admin Acetaminophen (TYLenol 325MG TAB) 650 mg Q6H PRN PO TEMPERATURE GREATER THAN 101.5 02/12/25 21:00 116/25 20:59 Alprazolam (XANax 0.5MG) 0.5 mg Q8H PRN PO ANXIETY/AGITATION 02/12/25 23:30 03/14/25 23:29 Aspirin (Aspirin 81mg Ec Tab) 81 mg DAILY PO 02/13/25 09:00 03/15/25 08:59 02/13/25 10:16 81 MG Enoxaparin Sodium (Lovenox) 40 mg DAILY SQ 02/13/25 09:00 03/15/25 08:59 02/13/25 10:18 40 MG Famotidine (Pepcid 20mg Tab) 20 mg DAILY PO 02/13/25 09:00 03/15/25 08:59 02/13/25 10:16 20 MG Hydralazine HCl (APRESOLine 20MG INJ) 10 mg Q6H PRN IV For:SBP above 160;DBP above 90 02/12/25 21:00 03/14/25 20:59 Insulin Human Regular (humuLIN R 100 UNIT/ML 3ML) INSULIN SLIDING SCAL... ACHS SQ 02/12/25 21:00 03/14/25 20:59 Lactated Ringer's 1,000 ml @ 75 mls/hr [id number] IV 02/12/25 21:00 03/14/25 20:59 02/13/25 10:18 75 MLS/HR Lactulose (Constulose 20gm/ 30ml Udcup) 20 gm BID PRN PO CONSTIPATION 02/12/25 21:00 03/14/25 20:59 Morphine Sulfate (morPHINE 4MG SYG) 2 mg Q4H PRN IVP SEVERE PAIN (7-10) 02/12/25 21:00 02/19/25 20:59 Ondansetron HCl (zoFRAN 4MG INJ) 4 mg Q6H PRN IV NAUSEA/VOMITING 02/12/25 21:00 03/14/25 20:59 Diagnostics / Radiology: [COPY/PASTE HERE IF NO REPORTS PLEASE DELETE SECTION] Assessment: [Nausea and vomiting Abdominal pain concern for gastroparesis ] Plan: [Case discussed with Dr. Menezes Plan for EGD in am Plan for GES on TUE Patient may have clear fluids today NPO after midnight. Please call with questions, concerns, and change in clinical status Thank you for this consult. ] NELSON ARCHULETAP Feb 13, 2025 11:26
[2025-02-13] MEDS ORDERED: LIDOCAINE HCL 1% 20 ML VIAL ONE (12:36)
--- NOTE | 2025-02-13 12:53 | TELE.CONS ---
Called to complete consult and patient in surgery for the rest of the day. Chart was reviewed and full consult note with antidepressant recommendations was completed. Recommended that team re-consult if any additional evaluation or recommendations are needed. Electronically Signed At: Feb 13, 2025 12:53 PM CDT By Lacy Walsh.
--- NOTE | 2025-02-13 14:00 | NUR ---
JUST RETURNED FROM PROCEDURE. "NOT HAPPY" HE IS UNABLE TO EAT. Addendum: 02/13/25 at 1406 by MONICA PADILLA PT Amended: Links added.
--- NOTE | 2025-02-13 14:56 | NUR ---
Nutritional Note: Chart, meds, and labs Reviewed. Pt lives alone and reported wt loss of 24-33 lb unintentional wt loss in 3 months. Pt reported recent decreased appetite > 1 week. Pt was at procedure at time of vsist. Pt currently on clear liquid diet. Recommend: -advance diet as tolerated to gi soft as symptoms improve and nausea resolves -Glucerna w/ trays -Nephrovite MVI combination of B vitamins may be used to treat or prevent vitamin deficiency due to poor diet. -Magic Cup 4oz w/ PM tray: Provides 9gm pro/ 290kcal and 20 vitamins and minerals. [place] to serve with meals as a means of adding calories and protein for unintended weight loss. -ProStat BID (30 ml) JELLO -If gut nonfunctional or cannot advance PO to >60% of needs by 5-7days, consider supplemental EN. - Electrolyte replacements per protocol -Monitor feeding tolerance, %, wt, and labs -Document PO intake and wt daily. -If No BM >3days consider bowel stimulant. -Consider appetite stimulant if intake remains <75%for 3 days. -Schedule outpatient RD f/u for long-term nutrition care. - Notify RD if additional nutrition concerns arise. SEE RD Nutritional Assessment for additional assessment information. Addendum: 02/13/25 at [address] Amended: Links added.
--- NOTE | 2025-02-13 15:00 | NUR ---
FALL PATIENT FOUND ON FLOOR BY DAUGHTER WHO ASSISTED PATIENT OOB AND UP TO BATHROOM, JAMEL MANAGER MOUNTAIN AND FENG MANAGER MOUNTAIN ASSISTED PATIENT UP , NOTIFIED CHARGE NURSE BLAINE WHO ENTERED ROOM TO ASSESS PATIENT. PATIENT DENIES INJURIES OR COMPLAINTS OF PAIN AT ANY GIVEN AREA ON HIS BODY ONLY TO LEFT LBOW WHICH HAS A MINOR SKIN TEAR TO ELBOW,STATED HE TANGLED UP IN GOWN WHILE GETTING UP FROM COMMODE IN BATHROOM, VOICED TO BLAINE PALMER THANKS FOR BEING CONCERNED BUT I AM FINE. WILL NOTIFY
--- NOTE | 2025-02-13 16:08 | PN ---
[facility] PROGRESS NOTE Date of Service: Feb 13, 2025 Time of Service: 15:58 SUBJECTIVE: Mr. Wall is a 74-year-old male who presented to the emergency department on 02/12/2025 with acute onset nausea and vomiting. Symptoms began prior to arrival and were persistent, with no reported abdominal pain, fever, or recent medication changes. Symptoms are aggravated with eating or drinking. Patient also reports that he gets easily irritated he has always had a short temper but never like this. Patient is also relates that he has felt easily irritated since his in June of 2024. Mr. Wall lives independently, denies tobacco, alcohol, or illicit drug use, and manages his own activities of daily living. He has a past medical history of diabetes mellitus type 2, hypertension and TIA. Emergency room physician recommended patient be admitted with a diagnosis of nausea vomiting, weakness, decreased appetite and suspected depression. Initial presentation showed WBC 7.4, HbA1c 6.1, troponin 8, and BNP is 33. Patient will be admitted to Med-surg unit for further management. 02/13/25 Patient was evaluated at the bedside. He was hemodynamically stable. He was accompanied by his daughter: Current condition and further recommendations were discussed with both of them. He underwent esophageal gastroduodenoscopy. As per the gastroenterology recommendation he will be started on PPN, since he is kept NPO for a gastric emptying test planned for tomorrow. Patient had a fall after the procedure and his daughter was with him and he got up on his own with only a small tear in his arm. Denies any angélica or dizziness or palpitations. Psychiatry was consulted commended to stop Wellbutrin due to lack of efficacy and potential appetite suppression. Also recommended Remeron 15 mg PO QHS for help with sleep, appetite and depression. REVIEW OF SYSTEMS CONSTITUTIONAL: Denies fevers, chills, or night sweats. No unintentional weight loss reported. NEUROLOGICAL: Denies headache, motor weakness, sensory deficit. CARDIOVASCULAR: Denies any exertional angina, dyspnea on exertion, orthopnea. PULMONARY: Denies any shortness of breath, cough, pleuritic chest pain. GASTROINTESTINAL: Nausea and vomiting currently resolving GENITOURINARY: Denies frequency, urgency, nocturia, hematuria or incontinence. PHYSICAL EXAM GENERAL APPEARANCE: The patient is awake, alert, and oriented, in no acute cardiopulmonary distress. NEUROLOGICAL: Motor is 5/5 in bilateral upper and lower extremities proximal to distal. No sensory deficits.. CHEST: Normal chest expansion. No Telemetry. LUNGS: Absence of any rales, rhonchi or any wheezing. CARDIOVASCULAR: Regular. S1 and S2 normal. No appreciable rubs, murmurs or gallops. ABDOMEN: Soft, nontender, and nondistended. There is no rebound, voluntary guarding, or rigidity. : Deferred. No Gold. EXTREMITIES: Non-edematous and not cyanotic. No clubbing. Good capillary refill. Vital Signs (last 8hr) Date Time Temp Pulse Resp B/P (MAP) Pulse Ox O2 Delivery O2 Flow Rate FiO2 02/13/25 13:30 97.9 53 16 163/72 97 Room Air 02/13/25 13:25 55 15 162/73 97 Room Air 02/13/25 13:20 54 16 161/72 98 Room Air 02/13/25 13:15 53 15 155/71 99 Room Air 02/13/25 13:10 54 17 158/70 98 Room Air 02/13/25 13:05 53 16 150/70 97 Room Air 02/13/25 13:00 97.3 54 15 152/71 99 Nasal Cannula 3.0 02/13/25 12:40 Mask 02/13/25 12:40 Mask 10.0 02/13/25 12:00 97.5 54 18 150/67 96 Room Air LABS: Laboratory: Test 02/13/25 11:47 02/13/25 10:56 02/13/25 03:45 02/12/25 20:56 Range/Units Whole Blood Ketones Quantitative 1.6 H 0.0-0.6 mmol/L Whole Blood Glucose 72 70-110 MG/DL Hemoglobin A1c 6.1 H 4.0-6.0 % Estimated Average Glucose (eAG) 128 H 70-126 mg/dL White Blood Count 6.4 4.8-10.8 K/uL Red Blood Count 4.30 L 4.50-6.20 MIL/uL Hemoglobin 13.9 L 14.0-18.0 g/dL Hematocrit 41.1 L 42-54 % Mean Corpuscular Volume 95.6 79-99 fL Mean Corpuscular Hemoglobin 32.3 27.0-33.0 pg Mean Corpuscular Hemoglobin Concent 33.8 32.0-36.0 g/dL Red Cell Distribution Width 13.2 11.0-15.5 % Platelet Count 203 130-400 K/uL Mean Platelet Volume 8.9 7.5-10.5 fL Immature Granulocyte % (Auto) 0.8 0-1 % Neutrophils (%) (Auto) 60.8 40.0-77.0 % Lymphocytes (%) (Auto) 24.3 21.0-51.0 % Monocytes (%) (Auto) 12.0 3.0-13.0 % Eosinophils (%) (Auto) 1.6 0.0-8.0 % Basophils (%) (Auto) 0.5 0.0-5.0 % Neutrophils # (Auto) 3.9 1.8-7.7 K/uL Lymphocytes # (Auto) 1.5 1.0-4.8 K/uL Monocytes # (Auto) 0.8 0.1-1.0 K/uL Eosinophils # (Auto) 0.10 0.00-0.70 K/uL Basophils # (Auto) 0.03 0.00-0.20 K/uL Absolute Immature Granulocyte (auto 0.05 0-1 K/uL Nucleated Red Blood Cells 0.0 0.0-0.19 % Sodium Level 143 136-145 mmol/L Potassium Level 3.9 3.5-5.1 mmol/L Chloride Level 106 101-111 mmol/L Carbon Dioxide Level 28 21-32 mmol/L Blood Urea Nitrogen 14 7-18 mg/dL Creatinine 0.8 0.5-1.3 mg/dL Glomerular Filtration Rate Calc 92 >90 mL/min Random Glucose 88 70-105 mg/dL Total Calcium 8.3 L 8.5-10.1 mg/dL Phosphorus Level 3.7 2.5-4.9 mg/dL Magnesium Level 1.70 L 1.80-2.40 mg/dL Test 02/12/25 20:27 02/12/25 16:15 02/12/25 15:40 Range/Units Lactic Acid Level 1.3 0.8-2.5 mmol/L Urine Color LIGHT-YELLOW YELLOW Urine Appearance CLEAR CLEAR Urine pH 5.5 5.0-8.0 Urine Specific [place] 1.026 1.001-1.031 Urine Protein NEGATIVE NEGATIVE mg/dL Urine Glucose (UA) >=1000 H NEGATIVE mg/dL Urine Ketones NEGATIVE NEGATIVE mg/dL Urine Occult Blood NEGATIVE NEGATIVE Urine Nitrate NEGATIVE NEGATIVE Urine Bilirubin NEGATIVE NEGATIVE mg/dL Urine Urobilinogen 0.2 0.2-1.0 mg/dL Urine Leukocyte Esterase NEGATIVE NEGATIVE [place]/uL Urine RBC 0-1 0-1 /HPF Urine WBC 0-1 0-1 /HPF Urine Bacteria None None Seen /HPF Troponin I High Sensitivity 8 4-75 ng/L B-Type Natriuretic Peptide 33 0-100 pg/mL Current Medications Medications (Trade) Dose Ordered Sig/Ayana Route PRN Reason Start Time Stop Time Status Last Admin Dose Admin Acetaminophen (TYLenol 325MG TAB) 650 mg Q6H PRN PO TEMPERATURE GREATER THAN 101.5 02/12/25 21:00 03/14/25 20:59 Alprazolam (XANax 0.5MG) 0.5 mg Q8H PRN PO ANXIETY/AGITATION 02/12/25 23:30 03/14/25 23:29 Amiodarone HCl (pacERONE 200MG) 200 mg BID PO 02/13/25 21:00 03/15/25 20:59 Aspirin (Aspirin 81mg Ec Tab) 81 mg DAILY PO 02/13/25 09:00 02/13/25 12:52 DC 02/13/25 10:16 81 MG Aspirin (Aspirin 81mg Ec Tab) 81 mg QODAY PO 02/15/25 09:00 03/17/25 08:59 Atorvastatin Calcium (LIPItor 40MG) 40 mg DAILY PO 02/14/25 09:00 03/16/25 08:59 Enoxaparin Sodium (Lovenox) 40 mg DAILY SQ 02/13/25 09:00 03/15/25 08:59 02/13/25 10:18 40 MG Famotidine (Pepcid 20mg Tab) 20 mg DAILY PO 02/13/25 09:00 03/15/25 08:59 02/13/25 10:16 20 MG Home Med (Home Medication) (Bupropion HCl 1 TAB) DAILY PO 02/14/25 09:00 03/16/25 08:59 Hydralazine HCl (APRESOLine 20MG INJ) 10 mg Q6H PRN IV For:SBP above 160;DBP above 90 02/12/25 21:00 03/14/25 20:59 Insulin Human Regular (humuLIN R 100 UNIT/ML 3ML) INSULIN SLIDING SCAL... ACHS SQ 02/12/25 21:00 03/14/25 20:59 Lactated Ringer's 1,000 ml @ 75 mls/hr [id number] IV 02/12/25 21:00 03/14/25 20:59 02/13/25 10:18 75 MLS/HR Lactulose (Constulose 20gm/ 30ml Udcup) 20 gm BID PRN PO CONSTIPATION 02/12/25 21:00 03/14/25 20:59 Lisinopril (Prinivil 20mg) 20 mg DAILY PO 02/14/25 09:00 03/16/25 08:59 Morphine Sulfate (morPHINE 4MG SYG) 2 mg Q4H PRN IVP SEVERE PAIN (7-10) 02/12/25 21:00 02/19/25 20:59 Ondansetron HCl (zoFRAN 4MG INJ) 4 mg Q6H PRN IV NAUSEA/VOMITING 02/12/25 21:00 03/14/25 20:59 DIAGNOSTICS / RADIOLOGY: [address] [address] IMAGING REPORT Signed PATIENT: KYRA WALL MR#: [id number] : 1950 SEX: M AGE: 74 LOCATION: [facility] ORDER 49 STATUS: [facility] REPORT#: [id number] SERVICE 1449 REASON: CHEST PAIN/SOB ORDERING PHYSICIAN: WAQAR ACEVEDO PROCEDURE: CXR1VW - CHEST 1VW EXAM: CR Chest, 1 View. CLINICAL HISTORY: CHEST PAIN/SOB COMPARISON: X-ray chest 01/09/2024 FINDINGS: LUNGS: There is no mass, infiltrate, or acute pulmonary abnormality. PLEURAL SPACES: No evidence of pleural effusion or pneumothorax. MEDIASTINUM: Cardiac size and mediastinal contours within normal limits. BONES: No acute osseous abnormality. IMPRESSION: No acute cardiopulmonary pathology is evident. No significant change /[place] DICTATED BY: MERLIN FERNANDEZ MD DATE: 02/12/251708 ELECTRONICALLY SIGNED BY: MERLIN FERNANDEZ MD DATE: 02/12/251708 [facility] [address] [place] [address] IMAGING REPORT Signed PATIENT: KYRA WALL MR#: [id number] : 1950 SEX: M AGE: 74 LOCATION: [facility] ORDER 17 STATUS: REG ER REPORT#: [id number] SERVICE 16 REASON: abd distention ORDERING PHYSICIAN: THOMAS FUENTES MD PROCEDURE: ABD PEL WO - CT ABDOMEN/PELVIS W/O CONTRAST EXAM: CT Abdomen and Pelvis Without IV contrast CLINICAL HISTORY: abd distention TECHNIQUE: Axial computed tomography images of the abdomen and pelvis without intravenous contrast. CONTRAST: No IV contrast. COMPARISON: None provided. CT abdomen and pelvis with and without IV contrast 06/30/2023 FINDINGS: LUNG BASES: The lung bases appear clear. No pleural effusions are seen. LIVER: Unremarkable. GALLBLADDER AND BILE DUCTS: The gallbladder appears within normal limits. No radioopaque gallstones are seen. No biliary ductal dilatation is evident. PANCREAS: Unremarkable. SPLEEN: Unremarkable. ADRENAL GLANDS: Unremarkable. KIDNEYS, URETERS, AND BLADDER: The kidneys appear within normal limits. There is no hydronephrosis or hydroureter. No urinary calculi are seen. Stable large simple left renal cyst. Stable partially calcified small right renal cyst STOMACH AND BOWEL: Unremarkable appearance of the stomach and bowel. No evidence of bowel obstruction. No evidence suggesting enteritis or colitis. Postsurgical small bowel changes left midabdomen. Colonic diverticulosis without CT evidence of acute diverticulitis APPENDIX: No evidence of acute appendicitis on CT examination. PERITONEUM: No free fluid. No free air. LYMPH NODES: No lymphadenopathy is evident. REPRODUCTIVE: Unremarkable as visualized. VASCULATURE: No evidence of abdominal aortic aneurysm. 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 BONES: No aggressive appearing osseous lesion. No acute osseous pathology evident. IMPRESSION: 1. No acute intraabdominal or pelvic pathology. 2. Stable large simple left renal cyst and partially calcified small right renal cyst. 3. Postsurgical small bowel changes in left midabdomen. 4. Colonic diverticulosis without CT evidence of acute diverticulitis. 5. 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 /[place] DICTATED BY: MERLIN FERNANDEZ MD DATE: 02/12/251912 ELECTRONICALLY SIGNED BY: MERLIN FERNANDEZ MD DATE: 02/12/251912 ASSESSMENT: Possible Gastroenteritis, POA Weakness and deconditioning, POA Decreased appetite, POA Suspected depression, POA Diabetes mellitius type2 Hypertension PLAN: Possible Gastroenteritis * As per the Patient's daughter, patient had multiple episodes of vomiting throughout January. * Currently does not complain of nausea and vomiting * Underwent Upper GI endoscopy today, to rule out any obstruction or other pathologies. It showed normal esophagus, gastritis which was biopsied and normal duodenal mucosa. 02/13/25 * As per the gastroenterology recommendation he will be started on PPN, since he is kept NPO for a gastric emptying test planned for tomorrow.02/13/25 * Maintain adequate fluid intake * Monitor for recurrence, abdominal pain, or inability to tolerate p.o. intake Suspected depression * Patient with recent loss of as well as weakness, weight lost poor appetite and GI symptoms. * Patient was taking Wellbutrin 100 mg daily prior to admission. This is a very low dose and this could have been suppressing his appetite. * As per the psychiatric recommendation: stop Wellbutrin due to lack of efficacy and potential appetite suppression * Recommend Remeron 15 mg PO QHS for help with sleep, appetite and depression * Advised for outpatient psychiatric follow up Hypertension * Continue home medications: Lisinopril 20 mg * Continue monitoring blood pressure * His blood pressure has been consistently high today systolic blood pressure ranging from 140s to 160s. 02/13/25 Diabetes Mellitus * His HGB A1c level is 6.1 * Blood glucose during presentation was 75 * Currently on sliding scale insulin * As per the Gastroenterology patient is planned for gastric emptying test tomorrow for possible gastroparesis. Supportive measures * Hydralazine 10 mg IV every 4 hours for systolic blood pressure greater than 160 mmHg * GI prophylaxis, famotidine * DVT prophylaxis, Lovenox * Continue monitoring morning labs: CBC and BMP ATTESTATION BY PHYSICIAN I have seen and examined the patient. I reviewed the documentation, medical decision making, and treatment plan as noted by the resident physician above. I agree with the findings and plan of care. SASHA BURLESON MD [facility],PRITESH WILLIS Feb 13, 2025 16:08
--- NOTE | 2025-02-13 17:30 | NUR ---
MD VISIT DR ISAAC HERE AND SPOKE WITH PATIENT REGARDING MEDS AND NPO STATUS , MD SHOWN LEFT ELBOW DRESSED WITH BANDAID FROM FALL EARLIER NO COMPLAINTS OF PAIN FROM PATIENT. RESTING IN BED.
[2025-02-13] MEDS: LISINOPRIL 20 MG TABLET PO ONE (18:06)
--- NOTE | 2025-02-13 22:30 | NUR ---
radiology to radiology via w/c for ct head, neck and lumbar area as ordered
--- NOTE | 2025-02-13 22:45 | NUR ---
radiology back from radiology to room, tolerated well, fall precautions, ivf infusing well
--- NOTE | 2025-02-13 22:50 | NUR ---
ppn per pharmacist ramos gabriel will be ready till tomorrow because order came after 1400 per shabnam
--- NOTE | 2025-02-13 23:01 | HMCIMG ---
EXAM: CT Head Without IV contrast. CLINICAL HISTORY: S/P FALL TECHNIQUE: Axial computed tomography images of the head/brain without intravenous contrast. COMPARISON: None provided. FINDINGS: BRAIN: No evidence of acute hemorrhage. No mass lesion. No CT evidence for acute territorial infarct. No midline shift or extra-axial collections. VENTRICLES: No hydrocephalus. ORBITS: The orbits are unremarkable. SINUSES AND MASTOIDS: The paranasal sinuses and mastoid air cells are clear. BONES: No fracture. SOFT TISSUES: Unremarkable. IMPRESSION: No acute intracranial abnormality. /[place]
--- NOTE | 2025-02-13 23:02 | HMCIMG ---
EXAM: CT Cervical Spine Without IV contrast. CLINICAL HISTORY: s/p fall neck pain TECHNIQUE: Axial computed tomography images of the cervical spine without intravenous contrast. Sagittal and coronal reformatted images were generated. COMPARISON: None provided. FINDINGS: ALIGNMENT: Bony alignment is anatomic. DEGENERATIVE CHANGES: Multilevel degenerative changes with disc disease facet and uncinate hypertrophy. SOFT TISSUES: The prevertebral soft tissues are within normal limits. BONES: No acute fracture or aggressive appearing osseous lesion. IMPRESSION: No acute cervical spine abnormality. /[place]
[2025-02-14] VITALS: BP 160/75; PULSE 52; RESP 18; TEMP 97.7
--- NOTE | 2025-02-14 00:18 | HMCIMG ---
EXAM: CT Lumbar Spine Without IV Contrast. CLINICAL HISTORY: Status post fall. TECHNIQUE: Spiral axial CT images through the lumbar spine were acquired, reconstructed in axial and sagittal projections, and imaged using soft tissue and bone algorithms. Reformatted/MPR images were performed. A CT scan is done according to ALARA (As Low as Reasonably Achievable). CONTRAST: None. COMPARISON: CT dated 06/01/24. FINDINGS: Mildly depressed acute fracture around the right superior lateral aspect of the L1 vertebral body with about 10% height reduction. Mild dextroscoliosis Normal vertebral body and disc heights. Diffuse osteopenia. Multilevel lumbar spondylosis with prominent marginal osteophytes. Circumferential disc bulge at the L2-3, L3-4, L4-5, and L5-S1 levels with bilateral mild neural foraminal narrowing. Bilateral multilevel mild facet arthropathy. The surrounding soft tissues are unremarkable. IMPRESSIONS: Mildly depressed acute fracture around the right superior lateral aspect of the L1 vertebral body with about 10% height reduction. A new finding. Mild dextroscoliosis Multilevel mild lumbar spondylosis. /[place]
[2025-02-14 03:51] VITALS: BP 155/72; PULSE 55; RESP 18; TEMP 97.9
[2025-02-14 04:40] LABS: NUCLEATED RED BLOOD CELLS 0.0 % (0.0-0.19); PLATELET COUNT (AUTO) 186.0 K/uL (130-400); RED BLOOD CELL COUNT(AUTO) 4.14 MIL/uL (4.50-6.20); RED CELL DISTRIBUTION WIDTH 12.9 % (11.0-15.5); WHITE BLOOD COUNT (AUTO) 7.7 K/uL (4.8-10.8)
[2025-02-14 04:49] LABS: CREATININE 0.7 mg/dL (0.5-1.3); GLOMERULAR FILTR. RATE CALC 95.0 mL/min (>90); GLUCOSE,RANDOM 72.0 mg/dL (70-105); SODIUM SERUM 140.0 mmol/L (136-145); UREA NITROGEN, BLOOD 9.0 mg/dL (7-18)
[2025-02-14] MEDS ORDERED: GLUCAGON 1MG KIT 1 MG ML IM PRN (05:30)
[2025-02-14] MEDS: DEXTROSE 50%-WATER 50 ML DISP.SYRIN IV PRN (05:54)
[2025-02-14 08:20] VITALS: BP 173/83; PULSE 61; RESP 20; TEMP 98.1
[2025-02-14] MEDS ORDERED: BUPROPION HCL PO SCH (09:00)
--- NOTE | 2025-02-14 10:28 | HMCIMG ---
NM GASTRIC EMPTYING STUDY HISTORY: Abdominal pain. TECHNIQUE: 1.5 mCi of technetium 99 sulfur colloid was administered with scrambled egg.Sequential images were obtained for 90 minutes and the gastric emptying calculated. FINDINGS: There is physiologic radiotracer activity in the stomach. Radiotracer activity is also seen in the small bowel. The linear fit T1/2 is 51 minutes,which is normal. (normal T1/2 is 90 min or less). The gastric emptying at 90 minutes is 20%%. IMPRESSION: Normal gastric emptying
--- NOTE | 2025-02-14 12:03 | NUR ---
Nutritional f/u Note: Chart, meds, and labs Reviewed. Pt is s/p gastroduodenoscopy As per the gastroenterology recommendation he will be started on PPN, since he is kept NPO for a gastric emptying test planned. RD went in to speak with pt, pt was out at a procedure, daughter in room to answer some questions. Pt daughter reported that pt with a recent decline in appetite, PO Intake and wt. Pt LBW on 02/05/25 (at drs office) 203# pt daughter stated that when pt came in to ER pt was 193#s. Pt with poor PO intake <50% of meals x 5 days. Pt with n/v prior to admit and started in January as per pt daughter. Pt daughter stated pt appetite and physical activity has declined since pts spouse passing in June 2024, pt feels guilty for spouse passing as per daughter. Pt started on clear liquid diet Recommend: -Nephrovite MVI combination of B vitamins may be used to treat or prevent vitamin deficiency due to poor diet. -Magic Cup 4oz w/ PM tray: Provides 9gm pro/ 290kcal and 20 vitamins and minerals. [place] to serve with meals as a means of adding calories and protein for unintended weight loss. -ProStat BID (30 ml) JELLO -Banabag with 100mg thiamine secondary to acute malnutrition and inadequate energy intake for >3 weeks. -When medically feasible and cleared by MD, consider CLinimix 5/4.25% via peripheral line at a rate of 83ml/hr, Include 10ml adult MVI and 3ml trace elements. -Lipid emulsion x 3weekly M, W, F to prevent essential fatty acid deficiency. Hold if triglycerides >400 or active sepsis not controlled. -RD to provide further recommendations based on clinical progress. -Monitor feeding tolerance, %, wt, and labs -If No BM >3days consider bowel stimulant. - Please notify RD if additional nutrition concerns arise. Addendum: 10/09/25 at [address] Amended: Links added.
[2025-02-14 12:44] VITALS: BP 171/76; PULSE 59; RESP 18; TEMP 97.6
[2025-02-14] MEDS ORDERED: DIATR MEGLU/DIATRIZOATE SODIUM 30 ML BOTTLE ONE (12:44)
[2025-02-14] MEDS: LISINOPRIL 20 MG TABLET PO SCH (12:51)
--- NOTE | 2025-02-14 15:02 | PN ---
GASTROENTEROLOGY PROGRESS NOTE Date of Visit: Feb 14, 2025 Time of Visit: 14:57 Events / Notes: [ Patient underwent upper GI endoscopy and was found to have normal esophagus, gastritis, normal mucosa in duodenal dental bulb and duodenum. A single duodenal polyp was found and resected. Patient underwent a gastric emptying study to assess for gastroparesis and was found to have normal gastric emptying time. Review of Systems: CONSTITUTIONAL: No malaise or change in sensation of wellbeing. ENMT: No rhinorrhea, otorrhea, sinus pain, ear ache. CARDIOVASCULAR: No angina, palpitations, orthopnea or paroxysmal dyspnea. RESPIRATORY: No SOB. GASTROINTESTINAL: No abdominal pain, nausea, vomiting, diarrhea, hematemesis, melena or change in the patient's habitual bowel movements consistency/number. GENITOURINARY: No dysuria, hematuria or change in bladder continence. MUSCULOSKELETAL: No new muscle pain or decrease in muscular strength. No new joint swelling, redness or tenderness. SKIN: No new rash. Physical Exam: GEN: Awake, alert, oriented in person, time and place, and in no acute distress. HEENT: No sinus tenderness. Tympanic membranes were not examined. No rhinorrhea. Oral pharyngeal mucosa is pink, moist and within normal limits. Neck is supple with no cervical lymphadenopathy, thyromegaly or JVD. CHEST: Inspection, palpation and percussion of the chest were unremarkable. Lung auscultation revealed normal breath sounds bilaterally. CARDIAC: PMI is within normal limits. Heart sounds are regular. Normal S1, S2. No gallop or murmur. ABD: Soft, non-tender and not distended. No peritoneal signs on palpation. No organomegaly. Normal bowel sounds. EXT: No cyanosis or clubbing. No edema. SKIN: Intact. No rashes. JOINTS: No evidence of synovitis or acute arthritis. NEURO: Alert and oriented to name, place and person. Cranial nerve examination is unremarkable. No focal motor deficits. Normal speech. Gait is normal. Strength is normal. Vital Signs (last 8hr) Date Time Temp Pulse Resp B/P (MAP) Pulse Ox O2 Delivery O2 Flow Rate FiO2 02/14/25 12:44 97.5 59 18 171/76 98 Room Air 21 02/14/25 08:20 98.1 61 20 173/83 98 Room Air Laboratory: [ ] Laboratory: Test 02/14/25 12:39 02/14/25 05:21 02/14/25 04:24 02/13/25 11:47 Range/Units Whole Blood Glucose 85 70-110 MG/DL Bedside Glucose Comment Notified Nurse White Blood Count 7.7 4.8-10.8 K/uL Red Blood Count 4.14 L 4.50-6.20 MIL/uL Hemoglobin 13.6 L 14.0-18.0 g/dL Hematocrit 39.0 L 42-54 % Mean Corpuscular Volume 94.2 79-99 fL Mean Corpuscular Hemoglobin 32.9 27.0-33.0 pg Mean Corpuscular Hemoglobin Concent 34.9 32.0-36.0 g/dL Red Cell Distribution Width 12.9 11.0-15.5 % Platelet Count 186 130-400 K/uL Mean Platelet Volume 8.9 7.5-10.5 fL Nucleated Red Blood Cells 0.0 0.0-0.19 % Sodium Level 140 136-145 mmol/L Potassium Level 4.4 3.5-5.1 mmol/L Chloride Level 103 101-111 mmol/L Carbon Dioxide Level 27 21-32 mmol/L Blood Urea Nitrogen 9 7-18 mg/dL Creatinine 0.7 0.5-1.3 mg/dL Glomerular Filtration Rate Calc 95 >90 mL/min Random Glucose 72 70-105 mg/dL Total Calcium 8.2 L 8.5-10.1 mg/dL Whole Blood Ketones Quantitative 1.6 H 0.0-0.6 mmol/L Test 02/13/25 03:45 02/12/25 20:56 02/12/25 20:27 02/12/25 16:15 Range/Units Hemoglobin A1c 6.1 H 4.0-6.0 % Estimated Average Glucose (eAG) 128 H 70-126 mg/dL Immature Granulocyte % (Auto) 0.8 0-1 % Neutrophils (%) (Auto) 60.8 40.0-77.0 % Lymphocytes (%) (Auto) 24.3 21.0-51.0 % Monocytes (%) (Auto) 12.0 3.0-13.0 % Eosinophils (%) (Auto) 1.6 0.0-8.0 % Basophils (%) (Auto) 0.5 0.0-5.0 % Neutrophils # (Auto) 3.9 1.8-7.7 K/uL Lymphocytes # (Auto) 1.5 1.0-4.8 K/uL Monocytes # (Auto) 0.8 0.1-1.0 K/uL Eosinophils # (Auto) 0.10 0.00-0.70 K/uL Basophils # (Auto) 0.03 0.00-0.20 K/uL Absolute Immature Granulocyte (auto 0.05 0-1 K/uL Phosphorus Level 3.7 2.5-4.9 mg/dL Magnesium Level 1.70 L 1.80-2.40 mg/dL Lactic Acid Level 1.3 0.8-2.5 mmol/L Urine Color LIGHT-YELLOW YELLOW Urine Appearance CLEAR CLEAR Urine pH 5.5 5.0-8.0 Urine Specific [place] 1.026 1.001-1.031 Urine Protein NEGATIVE NEGATIVE mg/dL Urine Glucose (UA) >=1000 H NEGATIVE mg/dL Urine Ketones NEGATIVE NEGATIVE mg/dL Urine Occult Blood NEGATIVE NEGATIVE Urine Nitrate NEGATIVE NEGATIVE Urine Bilirubin NEGATIVE NEGATIVE mg/dL Urine Urobilinogen 0.2 0.2-1.0 mg/dL Urine Leukocyte Esterase NEGATIVE NEGATIVE [place]/uL Urine RBC 0-1 0-1 /HPF Urine WBC 0-1 0-1 /HPF Urine Bacteria None None Seen /HPF Test 02/12/25 15:40 Range/Units Troponin I High Sensitivity 8 4-75 ng/L B-Type Natriuretic Peptide 33 0-100 pg/mL Current Medications Medications (Trade) Dose Ordered Sig/Ayana Route PRN Reason Start Time Stop Time Status Last Admin Dose Admin Acetaminophen (TYLenol 325MG TAB) 650 mg Q6H PRN PO TEMPERATURE GREATER THAN 101.5 02/12/25 21:00 03/14/25 20:59 Alprazolam (XANax 0.5MG) 0.5 mg Q8H PRN PO ANXIETY/AGITATION 02/12/25 23:30 03/14/25 23:29 Amiodarone HCl (pacERONE 200MG) 200 mg BID PO 02/13/25 21:00 03/15/25 20:59 02/14/25 12:50 200 MG Aspirin (Aspirin 81mg Ec Tab) 81 mg DAILY PO 02/13/25 09:00 02/13/25 12:52 DC 02/13/25 10:16 81 MG Aspirin (Aspirin 81mg Ec Tab) 81 mg QODAY PO 02/15/25 09:00 03/17/25 08:59 Atorvastatin Calcium (LIPItor 40MG) 40 mg DAILY PO 02/14/25 09:00 03/16/25 08:59 02/14/25 12:51 40 MG Dextrose (D50w) 50 ml AD PRN IV HYPOGLYCEMIA PROTOCOL 02/14/25 05:30 03/16/25 05:29 02/14/25 05:54 50 ML Enoxaparin Sodium (Lovenox) 40 mg DAILY SQ 02/13/25 09:00 03/15/25 08:59 02/14/25 12:53 40 MG Famotidine (Pepcid 20mg Tab) 20 mg DAILY PO 02/13/25 09:00 03/15/25 08:59 02/14/25 12:50 20 MG Fat Emulsion Intravenous 250 ml @ 42 mls/hr [id number] IV 02/15/25 09:00 03/17/25 08:59 Glucagon (Glucagon 1mg Kit) 1 mg AD PRN IM HYPOGLYCEMIA PROTOCOL 02/14/25 05:30 03/16/25 05:29 Home Med (Home Medication) (Bupropion HCl 1 TAB) DAILY PO 02/14/25 09:00 03/16/25 08:59 Hydralazine HCl (APRESOLine 20MG INJ) 10 mg Q6H PRN IV For:SBP above 160;DBP above 90 02/12/25 21:00 03/14/25 20:59 Insulin Human Regular (humuLIN R 100 UNIT/ML 3ML) INSULIN SLIDING SCAL... ACHS SQ 02/12/25 21:00 03/14/25 20:59 Lactated Ringer's 1,000 ml @ 75 mls/hr [id number] IV 02/12/25 21:00 03/14/25 20:59 02/13/25 10:18 75 MLS/HR Lactulose (Constulose 20gm/ 30ml Udcup) 20 gm BID PRN PO CONSTIPATION 02/12/25 21:00 03/14/25 20:59 Lisinopril (Prinivil 20mg) 20 mg DAILY PO 02/14/25 09:00 03/16/25 08:59 02/14/25 12:51 20 MG Mirtazapine (REMeron 15 MG TAB) 15 mg HS PO 02/14/25 21:00 03/16/25 20:59 Morphine Sulfate (morPHINE 4MG SYG) 2 mg Q4H PRN IVP SEVERE PAIN (7-10) 02/12/25 21:00 02/19/25 20:59 Ondansetron HCl (zoFRAN 4MG INJ) 4 mg Q6H PRN IV NAUSEA/VOMITING 02/12/25 21:00 03/14/25 20:59 Pantoprazole Sodium (PROTonix 40MG INJ) 40 mg BID IVP 02/13/25 21:00 03/15/25 20:59 02/14/25 12:52 40 MG Diagnostics / Radiology: [COPY/PASTE HERE IF NO REPORTS PLEASE DELETE SECTION] Assessment: [Nausea and vomiting Abdominal pain Gastritis K29.70 Polyp of stomach K31.7 Abnormal weight loss R63.4] Plan: [Case discussed with Dr. Menezes Continue with Protonix 40mg IV daily Patient may have clear fluids today once all tests are completed and advance as tolerated Patient is to f/u at [facility] in 1 week for results. Please call with questions, concerns, and change in clinical status Thank you for this consult. ] NELSON ARCHULETA [employer] Feb 14, 2025 15:02
--- NOTE | 2025-02-14 15:11 | HMCIMG ---
SMALL BOWEL SERIES HISTORY: Nausea COMPARISON: None. TECHNIQUE: A small bowel series was performed with serial radiographs of the abdomen and pelvis obtained after oral administration of 150 cc of Gastrografin contrast. FINDINGS: WIRE WORKER: No evidence for free air. No unusual calcifications detected. No dilated loops of bowel identified. There are air-filled small bowel which are nondilated After oral administration of contrast, normal opacification of the stomach noted without evidence for malrotation. The duodenum, jejunum, and ileum appear normal in caliber. The mucosal pattern appears grossly normal, without evidence for obstruction or discrete filling defect. Transit time through the small bowel was approximately left (normal is 1-4 hrs). The terminal ileum was spotted, and no strictures or masses detected. IMPRESSION: Normal chest radiograph small bowel follow-through. 2.5 hours and Gastrografin has reached the colon.
--- NOTE | 2025-02-14 16:24 | HMCSR ---
APPROVED REPORT EXAM: Two-dimensional and M-mode echocardiogram with Doppler and color Doppler. INDICATION ICD: Shortness of breath R06.02 2D Dimensions RVDd4.0 cmLVEF(%)70.3 (>50%)LVED Vol(simp.)135.0 mL IVSd0.9 (0.7-1.1cm)FS(%)40 %LVES Vol(simp.)55.0 mL LVDd4.9 (3.8-5.6cm)LA (2D)4.3 (1.6-4.0cm)LVEF(%, simp.)59 % PWd1.1 (0.7-1.1cm)Ao Root(2D)2.9 (2.0-3.7cm)LA ESV INDEX (BP)34.52 mL/m2 LVDs3.0 (2.5-4.0cm)LVOT diam2.2 (1.8-2.4cm) IVC diam2.0 cm Deformation Strain Apical 4-16.4 % Apical 2-16.4 % Apical 3-19.9 % Global Strain-17.6 % M-Mode Dimensions EPSS0.8 cm LA (MM)3.8 (1.6-4.0cm) Ao Root(MM)3.0 (2.0-3.7cm) Aortic Valve AoV Vmax2.0 m/Huyen Peak GR15.5 mmHgLVOT Vmax1.2 m/s AoV VTI0.5 mAo Mean GR8.1 mmHgLVOT VTI0.30 m BINA (VMAX)2.20 cm2Al P1/2T526 msAVA (VTI) 2.2 cm2 Mitral Valve MV E Xvvi892.8 cm/sDECEL Wlbo758 ms MV A Vmax93.3 cm/sP 1/2 T87 ms E/A ratio1.1MVA (PHT)2.5 cm2 TDI E/E' Tudjwk75.7E/E' Evkkmdp87.2 Medial E' Peak V8.63 cm/sLateral E' Peak V5.86 cm/s Pulmonary Valve PV Vmax1.1 m/sPV VTI0.27 mPV Mean GR2.5 mmHg PV Peak GR4.6 mmHg Tricuspid Valve TR Vmax2.6 m/sRVSP25.8 mmHg TR Peak GR28.1 mmHg Left Ventricle The left ventricle is normal size. There is normal left ventricular wall thickness. LVEF is 55-60%. T he left ventricular diastolic function is normal. Right Ventricle The right ventricle is normal size. The right ventricular systolic function is normal. Atria The left atrium size is normal. The right atrium size is normal. Aortic Valve Aortic valve leaflets are sclerotic but open well. Trace aortic regurgitation. There is no aortic emmanuelle vular stenosis. Mitral Valve Mitral valve leaflets open well. Anterior leaflet is mildly calcified. There is no mitral valve regur gitation noted. There is no mitral valve stenosis. Tricuspid Valve The tricuspid valve is normal in structure. There is mild tricuspid valve regurgitation noted. Pulmonic Valve The pulmonary valve is normal in structure. There is no pulmonic valvular regurgitation. Great Vessels The aortic root is normal in size. The IVC is normal in size and collapses >50% with inspiration. Pericardium There is no pericardial effusion. Other Information Quality : GoodRhythm : NSR Conclusion LVEF is 55-60%. The left ventricular diastolic function is normal. Aortic valve leaflets are sclerotic but open well. Trace aortic regurgitation. Mitral valve anterior leaflet is mildly calcified.
[2025-02-14 17:18] VITALS: BP 178/75; PULSE 64; RESP 18; TEMP 98.2
--- NOTE | 2025-02-14 17:20 | DS ---
Discharge Summary Hospital Course Summary: Mr. Wall is a 74-year-old male who presented to the emergency department on 02/12/2025 with acute onset nausea and vomiting. Symptoms began prior to arrival and were persistent, with no reported abdominal pain, fever, or recent medication changes. Symptoms are aggravated with eating or drinking. Patient al so reports that he gets easily irritated he has always had a short temper but never like this. Patient is also relates that he has felt easily irritated since his in June of 2024. Mr. Wall lives independently, denies tobacco, alcohol, or illicit drug use, and manages his own activities of daily living. He has a past medical history of diabetes mellitus type 2, hypertension and TIA. Initial presentation showed WBC 7.4, HbA1c 6.1, troponin 8, and BNP is 33. He underwent esophageal gastroduodenoscopy which showed gastritis and a duodenal polyp which was biopsied. Small bowel series and gastric emptying study were unremarkable with normal transit time. Patient had a fall in the restroom after the procedure and his daughter was with him and he got up on his own with only a small laceration on his arm. He was recovering from endoscopy procedure sedation. As per the bedside nurse and telemetry nurse, patient or his daughter did not call for help and he went to the restroom while still connected to his IV and turned off the bedside alarm. Denied any pain or dizziness or palpitations. He said his hospital gown got tangled when he tried to get up but denied any LOC or trauma to head. He had CT brain done due to his use of apixaban and CT lumbar spine which showed mild acute displaced fracture of L1 for which neurosurgery was consulted. Dr. Alexander recommended an abdominal binder and f/u at his office next Tuesday for a lumbar brace. Patient denies any urinary or bowel incontinence or numbness or tingling sensation. Psychiatry was consulted due to his poor appetite and depression, recommended to stop Wellbutrin due to lack of efficacy and potential appetite suppression. Also recommended Remeron 15 mg PO QHS for help with sleep, appetite and depression. Today, he is hemodynamically stable, ambulating well and had no n/v since admission. We will discharge the patient today and request him to f/u with his PCP in 2-3 days, [facility] in one week for biopsy results and Dr. Catherine for management of lumbar fracture. Bowling Teacher(s): GI - Dr. Menezes Neurosurgery - Dr. Alexander Psychiatry- Dr. Walsh Procedure(s): PATIENT: KYRA WALL MR#: [id number] : 1950 SEX: M AGE: 74 LOCATION: [facility] ORDER 1450 STATUS: REG ER REPORT#: [id number] SERVICE 1449 REASON: CHEST PAIN/SOB ORDERING PHYSICIAN: WAQAR ACEVEDO REIMBURSEMENT ANALYST PROCEDURE: CXR1VW - CHEST 1VW EXAM: CR Chest, 1 View. CLINICAL HISTORY: CHEST PAIN/SOB COMPARISON: X-ray chest 01/09/2024 FINDINGS: LUNGS: There is no mass, infiltrate, or acute pulmonary abnormality. PLEURAL SPACES: No evidence of pleural effusion or pneumothorax. MEDIASTINUM: Cardiac size and mediastinal contours within normal limits. BONES: No acute osseous abnormality. IMPRESSION: No acute cardiopulmonary pathology is evident. No significant change /[place] DICTATED BY: MERLIN FERNANDEZ MD DATE: 02/12/251708 ELECTRONICALLY SIGNED BY: MERLIN FERNANDEZ MD DATE: 02/12/251708 PATIENT: KYRA WALL MR#: [id number] : 1950 SEX: M AGE: 74 LOCATION: [facility] ORDER 17 STATUS: REG ER REPORT#: [id number] SERVICE 161 REASON: abd distention ORDERING PHYSICIAN: THOMAS FUENTES MD PROCEDURE: ABD PEL WO - CT ABDOMEN/PELVIS W/O CONTRAST EXAM: CT Abdomen and Pelvis Without IV contrast CLINICAL HISTORY: abd distention TECHNIQUE: Axial computed tomography images of the abdomen and pelvis without intravenous contrast. CONTRAST: No IV contrast. COMPARISON: None provided. CT abdomen and pelvis with and without IV contrast 06/30/2023 FINDINGS: LUNG BASES: The lung bases appear clear. No pleural effusions are seen. LIVER: Unremarkable. GALLBLADDER AND BILE DUCTS: The gallbladder appears within normal limits. No radioopaque gallstones are seen. No biliary ductal dilatation is evident. PANCREAS: Unremarkable. SPLEEN: Unremarkable. ADRENAL GLANDS: Unremarkable. KIDNEYS, URETERS, AND BLADDER: The kidneys appear within normal limits. There is no hydronephrosis or hydroureter. No urinary calculi are seen. Stable large simple left renal cyst. Stable partially calcified small right renal cyst STOMACH AND BOWEL: Unremarkable appearance of the stomach and bowel. No evidence of bowel obstruction. No evidence suggesting enteritis or colitis. Postsurgical small bowel changes left midabdomen. Colonic diverticulosis without CT evidence of acute diverticulitis APPENDIX: No evidence of acute appendicitis on CT examination. PERITONEUM: No free fluid. No free air. LYMPH NODES: No lymphadenopathy is evident. REPRODUCTIVE: Unremarkable as visualized. VASCULATURE: No evidence of abdominal aortic aneurysm. 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 BONES: No aggressive appearing osseous lesion. No acute osseous pathology evident. IMPRESSION: 1. No acute intraabdominal or pelvic pathology. 2. Stable large simple left renal cyst and partially calcified small right renal cyst. 3. Postsurgical small bowel changes in left midabdomen. 4. Colonic diverticulosis without CT evidence of acute diverticulitis. 5. 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 /[place] DICTATED BY: MERLIN FERNANDEZ MD DATE: 02/12/251912 ELECTRONICALLY SIGNED BY: MERLIN FERNANDEZ MD DATE: 02/12/251912 PATIENT: KYRA WALL MR#: [id number] : 1950 SEX: M AGE: 74 LOCATION: [facility] ORDER 50 STATUS: ADM IN REPORT#: [id number] SERVICE 46 REASON: S/P FALL ORDERING PHYSICIAN: HU DICKEY PROCEDURE: HEAD WO - CT HEAD/BRAIN W/O CONTRAST EXAM: CT Head Without IV contrast. CLINICAL HISTORY: S/P FALL TECHNIQUE: Axial computed tomography images of the head/brain without intravenous contrast. COMPARISON: None provided. FINDINGS: BRAIN: No evidence of acute hemorrhage. No mass lesion. No CT evidence for acute territorial infarct. No midline shift or extra-axial collections. VENTRICLES: No hydrocephalus. ORBITS: The orbits are unremarkable. SINUSES AND MASTOIDS: The paranasal sinuses and mastoid air cells are clear. BONES: No fracture. SOFT TISSUES: Unremarkable. IMPRESSION: No acute intracranial abnormality. /[place] DICTATED BY: RADHA ORNELAS MD DATE: 02/14/252204 ELECTRONICALLY SIGNED BY: RADHA ORNELAS MD DATE: 02/14/252204 PATIENT: KYRA WALL MR#: [id number] : 1950 SEX: M AGE: 74 LOCATION: [facility] ORDER 50 STATUS: [facility] REPORT#: [id number] SERVICE 46 REASON: S/P FALL ORDERING PHYSICIAN: HU DICKEY PROCEDURE: L SPIN WO - CT LUMBAR SPINE W/O CONTRAST EXAM: CT Lumbar Spine Without IV Contrast. CLINICAL HISTORY: Status post fall. TECHNIQUE: Spiral axial CT images through the lumbar spine were acquired, reconstructed in axial and sagittal projections, and imaged using soft tissue and bone algorithms. Reformatted/MPR images were performed. A CT scan is done according to ALARA (As Low as Reasonably Achievable). CONTRAST: None. COMPARISON: CT dated 06/01/24. FINDINGS: Mildly depressed acute fracture around the right superior lateral aspect of the L1 vertebral body with about 10% height reduction. Mild dextroscoliosis Normal vertebral body and disc heights. Diffuse osteopenia. Multilevel lumbar spondylosis with prominent marginal osteophytes. Circumferential disc bulge at the L2-3, L3-4, L4-5, and L5-S1 levels with bilateral mild neural foraminal narrowing. Bilateral multilevel mild facet arthropathy. The surrounding soft tissues are unremarkable. IMPRESSIONS: Mildly depressed acute fracture around the right superior lateral aspect of the L1 vertebral body with about 10% height reduction. A new finding. Mild dextroscoliosis Multilevel mild lumbar spondylosis. /[place] DICTATED BY: GRISELDA ADAME Jr., MD DATE: 02/14/25116 ELECTRONICALLY SIGNED BY: GRISELDA ADAME Jr., MD DATE: 02/14/25116 PATIENT: KYRA WALL MR#: [id number] : 1950 SEX: M AGE: 74 LOCATION: [facility] ORDER 04 STATUS: ADM IN REPORT#: [id number] SERVICE 03 REASON: s/p fall neck pain ORDERING PHYSICIAN: HU DICKEY REIMBURSEMENT ANALYST PROCEDURE: C SPIN WO - CT CERVICAL SPINE W/O CONTRAST EXAM: CT Cervical Spine Without IV contrast. CLINICAL HISTORY: s/p fall neck pain TECHNIQUE: Axial computed tomography images of the cervical spine without intravenous contrast. Sagittal and coronal reformatted images were generated. COMPARISON: None provided. FINDINGS: ALIGNMENT: Bony alignment is anatomic. DEGENERATIVE CHANGES: Multilevel degenerative changes with disc disease facet and uncinate hypertrophy. SOFT TISSUES: The prevertebral soft tissues are within normal limits. BONES: No acute fracture or aggressive appearing osseous lesion. IMPRESSION: No acute cervical spine abnormality. /[place] DICTATED BY: RADHA ORNELAS MD DATE: 02/14/25 0002 PATIENT: KYRA WALL MR#: [id number] : 1950 SEX: M AGE: 74 LOCATION: [facility] ORDER 1205 STATUS: ADM IN REPORT#: [id number] SERVICE 0630 REASON: evaluate for gastroparesis ORDERING PHYSICIAN: NELSON ARCHULETA REIMBURSEMENT ANALYST PROCEDURE: GASTEMP - NM GASTRIC EMPTYING STUDY NM GASTRIC EMPTYING STUDY HISTORY: Abdominal pain. TECHNIQUE: 1.5 mCi of technetium 99 sulfur colloid was administered with scrambled egg.Sequential images were obtained for 90 minutes and the gastric emptying calculated. FINDINGS: There is physiologic radiotracer activity in the stomach. Radiotracer activity is also seen in the small bowel. The linear fit T1/2 is 51 minutes,which is normal. (normal T1/2 is 90 min or less). The gastric emptying at 90 minutes is 20%%. IMPRESSION: Normal gastric emptying DICTATED BY: REG WRAY MD DATE: 02/14/25 1024 ELECTRONICALLY SIGNED BY: REG WRAY MD DATE: 02/14/25 1028 ELECTRONICALLY SIGNED BY: RADHA ORNELAS MD DATE: 02/14/25 0002 PATIENT: KYRA WALL MR#: [id number] : 1950 SEX: M AGE: 74 LOCATION: [facility] ORDER 1111 STATUS: ADM IN REPORT#: [id number] SERVICE 1107 REASON: SOB ORDERING PHYSICIAN: PRITESH ISAAC MD PROCEDURE: ECHO CMP - ECHO 2-D COMPLETE APPROVED REPORT EXAM: Two-dimensional and M-mode echocardiogram with Doppler and color Doppler. INDICATION ICD: Shortness of breath R06.02 2D Dimensions RVDd 4.0 cm LVEF(%) 70.3 (>50%) LVED Vol(simp.) 135.0 mL IVSd 0.9 (0.7-1.1cm) FS(%) 40 % LVES Vol(simp.) 55.0 mL LVDd 4.9 (3.8-5.6cm) LA (2D) 4.3 (1.6-4.0cm) LVEF(%, simp.) 59 % PWd 1.1 (0.7-1.1cm) Ao Root(2D) 2.9 (2.0-3.7cm) LA ESV INDEX (BP) 34.52 mL/m2 LVDs 3.0 (2.5-4.0cm) LVOT diam 2.2 (1.8-2.4cm) IVC diam 2.0 cm Deformation Strain Apical 4 -16.4 % Apical 2 -16.4 % Apical 3 -19.9 % Global Strain -17.6 % M-Mode Dimensions EPSS 0.8 cm LA (MM) 3.8 (1.6-4.0cm) Ao Root(MM) 3.0 (2.0-3.7cm) Aortic Valve AoV Vmax 2.0 m/s Ao Peak GR 15.5 mmHg LVOT Vmax 1.2 m/s AoV VTI 0.5 m Ao Mean GR 8.1 mmHg LVOT VTI 0.30 m BINA (VMAX) 2.20 cm2 Al P1/2T 526 ms BINA (VTI) 2.2 cm2 Mitral Valve MV E Vmax 100.8 cm/s DECEL Time 209 ms MV A Vmax 93.3 cm/s P 1/2 T 87 ms E/A ratio 1.1 MVA (PHT) 2.5 cm2 TDI E/E' Medial 11.7 E/E' Lateral 17.2 Medial E' Peak V 8.63 cm/s Lateral E' Peak V 5.86 cm/s Pulmonary Valve PV Vmax 1.1 m/s PV VTI 0.27 m PV Mean GR 2.5 mmHg PV Peak GR 4.6 mmHg Tricuspid Valve TR Vmax 2.6 m/s RVSP 25.8 mmHg TR Peak GR 28.1 mmHg Left Ventricle The left ventricle is normal size. There is normal left ventricular wall thick ness. LVEF is 55-60%. The left ventricular diastolic function is normal. Right Ventricle The right ventricle is normal size. The right ventricular systolic function is normal. Atria The left atrium size is normal. The right atrium size is normal. Aortic Valve Aortic valve leaflets are sclerotic but open well. Trace aortic regurgitation. There is no aortic valvular stenosis. Mitral Valve Mitral valve leaflets open well. Anterior leaflet is mildly calcified. There is no mitral valve regurgitation noted. There is no mitral valve stenosis. Tricuspid Valve The tricuspid valve is normal in structure. There is mild tricuspid valve reg urgitation noted. Pulmonic Valve The pulmonary valve is normal in structure. There is no pulmonic valvular regurgitation. Great Vessels The aortic root is normal in size. The IVC is normal in size and collapses >50% with inspiration. Pericardium There is no pericardial effusion. Other Information Quality : Good Rhythm : NSR Conclusion LVEF is 55-60%. The left ventricular diastolic function is normal. Aortic valve leaflets are sclerotic but open well. Trace aortic regurgitation. Mitral valve anterior leaflet is mildly calcified. DICTATED BY: JENNIFER YAP DO DATE: 02/14/25 0828 ELECTRONICALLY SIGNED BY: JENNIFER YAP DO DATE: 02/14/25 1000 PATIENT: KYRA WALL MR#: [id number] : 1950 SEX: M AGE: 74 LOCATION: [facility] ORDER 12 STATUS: ADM IN REPORT#: [id number] SERVICE 160 REASON: NAUSEA ORDERING PHYSICIAN: JESUS FOUNTAIN MD PROCEDURE: SBFT - SM BOWEL SERIES SMALL BOWEL SERIES HISTORY: Nausea COMPARISON: None. TECHNIQUE: A small bowel series was performed with serial radiographs of the abdomen and pelvis obtained after oral administration of 150 cc of Gastrografin contrast. FINDINGS: CHILI POWDER MIXER: No evidence for free air. No unusual calcifications detected. No dilated loops of bowel identified. There are air-filled small bowel which are nondilated After oral administration of contrast, normal opacification of the stomach noted without evidence for malrotation. The duodenum, jejunum, and ileum appear normal in caliber. The mucosal pattern appears grossly normal, without evidence for obstruction or discrete filling defect. Transit time through the small bowel was approximately left (normal is 1-4 hrs). The terminal ileum was spotted, and no strictures or masses detected. IMPRESSION: Normal chest radiograph small bowel follow-through. 2.5 hours and Gastrografin has reached the colon. DICTATED BY: REG WRAY MD DATE: 02/14/25 150 ELECTRONICALLY SIGNED BY: REG WRAY MD DATE: 02/14/25 1511 Assessment/Plan: ASSESSMENT: Gastroenteritis, POA , resolved Colonic diverticulosis, POA Weakness and deconditioning, POA Decreased appetite, POA Depression, POA Diabetes mellitius type2 Hypertension Mildly depressed acute fracture of L1 s/p fall, not POA Discharge Instructions: ADMISSION DATE : 02/12/25 DISCHARGE DATE: 02/14/25 DISPOSITION : Home CONDITION : Stable SALES AND DISTRIBUTION CLERK(S) : GI - Dr. Menezes, Neurosurgery - Dr. Alexander, Psychiatry- Dr. Walsh FOLLOW UP APPOINTMENT(S) : f/u with PCP in one 2-3 days PROCEDURES: none IMAGING (S) : report attached to summary MICROBIOLOGY : none ACTIVITY : ad rosa HOME MEDICATIONS : Continued Home Medications: Active Scripts Mirtazapine (Mirtazapine) 15 Mg Tablet, 1 TAB PO HS for 30 Days, #30 TAB 0 Refills Prov:STACEY TEE MD 02/14/25 Pantoprazole Sodium (Pantoprazole Sodium) 40 Mg Tablet., 1 TAB PO DAILY for 30 Days, #30 TAB 0 Refills Prov:STACEY TEE MD 02/14/25 Reported Medications Atorvastatin Calcium (Atorvastatin Calcium) 40 Mg Tablet, 1 TAB PO DAILY 02/12/25 Empagliflozin (Jardiance) 10 Mg Tablet, 1 TAB PO DAILY 02/12/25 Doxycycline Monohydrate (Doxycycline Monohydrate) 100 Mg Tablet, 1 TAB PO BID 02/12/25 Furosemide (Furosemide) 20 Mg Tablet, 1 TAB PO DAILY 02/12/25 Levetiracetam (Levetiracetam) 500 Mg Tablet, 1 TAB PO BID 02/12/25 Lisinopril (Lisinopril) 20 Mg Tablet, 1 TAB PO DAILY 02/12/25 Apixaban (Eliquis) 5 Mg Tablet, 1 TAB PO BID 02/12/25 Amiodarone HCl (Amiodarone HCl) 200 Mg Tablet, 1 TAB PO BID 02/12/25 Metformin HCl (Metformin HCl) 1,000 Mg Tablet, 1 TAB PO BIDMEALS 02/12/25 Aspirin (Aspirin EC) 81 Mg Tablet., 1 TAB PO QODAY for 30 Days, #30 TAB 0 Refills 02/12/25 Discontinued Reported Medications Bupropion HCl (Bupropion HCl) 100 Mg Tablet, 1 TAB PO DAILY 02/12/25 Discontinued Scripts Lidocaine (Lidocaine) 4 % Adh..patch, 1 PATCH TP DAILY for 10 Days, #10 PATCH 0 Refills Prov:SHERRY BENAVIDES REIMBURSEMENT ANALYST 06/01/24 Cyclobenzaprine HCl (Flexeril) 10 Mg Tab, 10 MG PO TID for muscle sstiffness, #14 TAB 0 Refills Prov:SHERRY BENAVIDES REIMBURSEMENT ANALYST 06/01/24 Ibuprofen (Motrin/Advil) 800 Mg Tab, 800 MG PO TID, #30 TAB Prov:MYRA PATINO MD 05/29/22 Famotidine (Pepcid) 20 Mg Tablet, 20 MG PO DAILY, #30 TAB Prov:MYRA PATINO MD 05/29/22 New Medications: Mirtazapine (Mirtazapine) 15 Mg Tablet 1 TAB PO HS for 30 Days, #30 TAB 0 Refills Pantoprazole Sodium (Pantoprazole Sodium) 40 Mg Tablet.dr 1 TAB PO DAILY for 30 Days, #30 TAB 0 Refills Continued Medications: Amiodarone HCl (Amiodarone HCl) 200 Mg Tablet 1 TAB PO BID Apixaban (Eliquis) 5 Mg Tablet 1 TAB PO BID Aspirin (Aspirin EC) 81 Mg Tablet.dr 1 TAB PO QODAY for 30 Days, #30 TAB 0 Refills Atorvastatin Calcium (Atorvastatin Calcium) 40 Mg Tablet 1 TAB PO DAILY Doxycycline Monohydrate (Doxycycline Monohydrate) 100 Mg Tablet 1 TAB PO BID Empagliflozin (Jardiance) 10 Mg Tablet 1 TAB PO DAILY Furosemide (Furosemide) 20 Mg Tablet 1 TAB PO DAILY Levetiracetam (Levetiracetam) 500 Mg Tablet 1 TAB PO BID Lisinopril (Lisinopril) 20 Mg Tablet 1 TAB PO DAILY Metformin HCl (Metformin HCl) 1,000 Mg Tablet 1 TAB PO BIDMEALS Time spent arranging discharge: 1-30 minutes ATTESTATION BY PHYSICIAN I have seen and examined the patient. I reviewed the documentation, medical decision making, and treatment plan as noted by the resident above. I agree with the findings and plan of care. SASHA BURLESON MD, NIHITHA MD Feb 14, 2025 17:20
[2025-02-14] MEDS ORDERED: PANT40TA54 PO (17:22)
[2025-02-14] MEDS ORDERED: MIRT-22 PO (17:23)
--- NOTE | 2025-02-14 17:50 | NUR ---
DISCHARGE PATIENT DISCHARGED HOME , PATIENT INFORMED TO FOLLOW UP ON Tuesday02/19/[address] SCHAFER AND GI DOCTOR PATIENT GIVEN INFORMATION TO MAKE APPOINTMENTS WITH [facility] ON SCHEDULED DAY, ABDOMINAL BINDER SUPPLIED PER DR SCHAFER UNTIL HE SEES HIM AT [facility]ICE.PATIENT VERBALIZED UNDERSTANDING ANFD WAS DISCHARGED TO [facility] AT THIS TIME.
[2025-02-14] MEDS ORDERED: M.V.I. IV [ADULT] 10 ML, MULTITRACE-4 ADULT 10ML VIAL 3 ML in CLINIMIX-E4.25%AA/D5+LYT2... IV ONE (20:00)
[2025-02-15] MEDS ORDERED: FAT EMULSIONS 20% 250ML 250 ML IV SCH (09:00)
[2025-02-15] MEDS ORDERED: ASPIRIN 81 MG EC TAB PO SCH (09:00)
--- NOTE | 2025-02-15 10:09 | HMCIMG ---
EXAM: MR Lumbar Spine Without Intravenous Contrast. CLINICAL HISTORY: history of trauma. TECHNIQUE: Magnetic resonance images of the lumbar spine in multiple planes. CONTRAST: None. COMPARISON: None. FINDINGS: For this examination, spinal levels were labeled assuming five [id number], lumbar-type vertebrae, with the inferior labeled L5. Acute fracture involving the anterosuperior aspect of the L1 vertebral body with approximately 10% reduction in vertebral body height. Adjacent intervertebral disc space is maintained. Altered marrow signal intensity with a small hypointense line also in the T12 vertebral body, without reduction in vertebral body height. T12 and L1 vertebral bodies appear hyperintense in T2 and STIR and hypointense in T1Wt images. No significant buckling of the posterior cortex of T12 or L1. No significant spinal canal stenosis. Straightening of lumbar spine curvature with maintained alignment. Degenerative changes as multilevel marginal osteophytes, disc desiccation, ligamentum flavum hypertrophy, and facet joint arthropathy. Intervertebral disc height is maintained. Normal marrow signal of the rest of the lumbar vertebrae. Conus medullaris terminates at the T12-L1 level. No abnormal epidural masses. The surrounding soft tissues are unremarkable. Individual spinal levels are described as follows: T12-L1: No disc bulge or herniation. No neural foraminal, lateral recess, or spinal canal stenosis. L1-L2: 2 mm mild disc bulge indenting thecal sac. No neural foraminal, lateral recess, or spinal canal stenosis. L2-L3: 3 mm mild diffuse disc bulge, indenting thecal sac and bilateral neural foramina. Mild bilateral foraminal stenosis. No significant exiting nerve root compression. L3-L4: 3 mm mild diffuse disc bulge, indenting thecal sac and bilateral neural foramina. Mild bilateral foraminal stenosis. No significant exiting nerve root compression. L4-L5: 4 mm posterior central and bilateral paracentral disc bulge, indenting thecal sac and bilateral neural foramina. Mild bilateral foraminal stenosis. No significant exiting nerve root compression. L5-S1: 4 mm posterior central and bilateral paracentral disc bulge with postero-central and left paracentral annular tear, indenting the thecal sac and bilateral neural foramina. Mild bilateral foraminal stenosis. No significant exiting or traversing nerve root compression. IMPRESSION: Acute fracture of the anterosuperior aspect of the L1 vertebral body with approximately 10% reduction in height. Acute hairline fracture of D12 vertebral body without reduction in height. Mild lumbar spondylosis changes. Disc degenerative disease is more pronounced at the L4-L5 and L5-S1 intervertebral disc space; however, no significant exiting or traversing nerve root compression. The visualized lower spinal cord appears normal in morphology and signal intensity. /[place]
== END 2025-02-14 18:10 | disposition home or self-care (01) | DRG 392 ==
LOC: EDH 14:43 → EDHIP 20:36 → 4BH 22:14
PROVIDERS: ADMIT Internal Medicine; ATTEND Internal Medicine
PROC: 0DB98ZX Excision of Duodenum, Via Natural or Artificial Opening Endoscopic, Diagnostic (ICD-10-PCS; principal; 2025-02-13)
PROC: 0DB78ZX Excision of Stomach, Pylorus, Via Natural or Artificial Opening Endoscopic, Diagnostic (ICD-10-PCS; 2025-02-13)
PROC: 0DB68ZX Excision of Stomach, Via Natural or Artificial Opening Endoscopic, Diagnostic (ICD-10-PCS; 2025-02-13)
DX: K52.9 Noninfective gastroenteritis and colitis, unspecified (principal); E87.20 Acidosis, unspecified; K31.84 Gastroparesis; F43.21 Adjustment disorder with depressed mood; E11.43 Type 2 diabetes mellitus with diabetic autonomic (poly)neuropathy; K29.70 Gastritis, unspecified, without bleeding; E78.5 Hyperlipidemia, unspecified; K57.30 Diverticulosis of large intestine without perforation or abscess without bleeding; N28.1 Cyst of kidney, acquired; F32.A Depression, unspecified; K31.7 Polyp of stomach and duodenum; I10 Essential (primary) hypertension; Z51.5 Encounter for palliative care; Z63.4 Disappearance and death of family member; Z86.73 Personal history of transient ischemic attack (TIA), and cerebral infarction without residual deficits
CPT/HCPCS: 36415; 43239; 70450; 71045; 72125; 72131; 72148; 74176; 74250; 78264; 80048; 81001; 82010; 82948; 83036; 83605; 83735; 83880; 84100; 84484; 85025; 85027; 87040; 88305; 88312; 93005; 93306; 93356; 96365; 96375; 97161; 99285; A4606; A9541; G0378; J0696; J1650; J2470; J2704; J3490; J7030; J7070; Q9963; A4215; A4222; A4223; A4620